=== PATIENT | male | born 1980 | race American Indian/Alaskan Native ===

== ENCOUNTER 2017-02-28 05:01 | Inpatient (IN) | payer BC ==
--- NOTE | 2017-02-28 05:24 | Emergency Department Report ---
ED Neuro Deficit HPI - General Stated Complaint: POSSIBLE CVA Time Seen by Provider: 02/28/17 05:15 - History of Present Illness Initial Comments: This is a 36-year-old gentleman who went to bed at 2200. He woke up at 03 40. He noted that his left leg wouldn't work. He states that he has had prior stroke greater than a year ago with subsequent deficit to his left leg but he is usually able to move his leg relatively good at least able to move it well enough to ambulate. He states that this morning he wasn't able to move his leg in the knee and in any fashion. He apprised his who called ambulance for transport to our facility. Patient denies any headache with this. He does report as well some mild weakness in the left arm. He states this is new is well. He denies any difficulty with speech whatsoever. Patient does report that he does have long-standing history of hypertension that he has run out of some of his medications for. Quality: weak Associated Symptoms: denies: chest pain, cough, diaphoresis, headaches, loss of appetite, shortness of breath - Related Data Allergies/Adverse Reactions: Allergies Allergy/AdvReac Type Severity Reaction Status Date / Time No Known Allergies Allergy Unverified 02/28/17 05:50 ED Review of Systems ROS: Stated complaint: POSSIBLE CVA Other details as noted in HPI Comment: All other systems reviewed and negative Constitutional: denies: chills, fever Eyes: denies: eye pain, eye discharge, vision change ENT: denies: ear pain, throat pain Respiratory: denies: cough, shortness of breath, wheezing Cardiovascular: denies: chest pain, palpitations Endocrine: no symptoms reported Gastrointestinal: denies: abdominal pain, nausea, diarrhea Genitourinary: denies: urgency, dysuria Musculoskeletal: denies: back pain, joint swelling, arthralgia Skin: denies: rash, lesions Neurological: weakness. denies: headache, paresthesias Psychiatric: denies: anxiety, depression Hematological/Lymphatic: denies: easy bleeding, easy bruising ED Neuro Physical Exam - General General appearance: alert, in no apparent distress Suspected Stroke: Yes - Head Head exam: Present: atraumatic, normocephalic - Eye Eye exam: Present: normal appearance, PERRL, EOMI. Absent: scleral icterus - ENT ENT exam: Present: normal exam, normal orophraynx, mucous membranes moist - Neck Neck exam: Present: normal inspection, other (no carotid bruit). Absent: tenderness, meningismus, full ROM - Respiratory Respiratory exam: Present: normal lung sounds bilaterally. Absent: respiratory distress, rales, rhonchi - Cardiovascular Cardiovascular Exam: Present: regular rate, normal rhythm. Absent: systolic murmur, diastolic murmur, rubs, gallop - GI/Abdominal GI/Abdominal exam: Present: soft, normal bowel sounds. Absent: tenderness, guarding - Rectal Rectal exam: Present: deferred - Extremities Exam Extremities exam: Present: other (left upper extremity with mild weakness compared to that of right. He is able to hold his arm up completely for the whole 5 seconds however. Left lower extremity with no activity against gravity. Right lower extremity is normal. Sluggish response on the left Babinski. Normal response on the right.). Absent: pedal edema, calf tenderness - Back Exam Back exam: Present: normal inspection. Absent: tenderness, CVA tenderness (R), CVA tenderness (L) - Neurological Exam Neurological exam: Present: alert, oriented X3, CN II-XII intact - NIHSS Assessment Interval: Baseline 1a. Level of Consciousness: alert 1b. LOC Questions: answers correctly 1c. LOC Commands: performs tasks correctly 2. Best Gaze: normal 3. Visual: no visual loss 4. Facial Palsy: normal symmetrical movement 5b. Motor Arm Right: no drift 5a. Motor Arm Left: no drift 6a. Motor Leg Left: no movement 6b. Motor Leg Right: no drift 7. Limb Ataxia: present 1 limb 8. Sensory: mild/moderate sensory loss 9. Best Language: no aphasia 10. Dysarthria: normal 11. Extinction/Inattention: no abnormality Total Score: 6 Stroke Severity: Moderate Stroke - Psychiatric Psychiatric exam: Present: normal affect, normal mood - Skin Skin exam: Present: warm, dry, intact, normal color. Absent: rash ED Course Vital Signs 02/28/17 02/28/17 02/28/17 05:05 05:07 05:30 Temperature 99.9 F H Pulse Rate 80 76 78 Respiratory 18 22 10 L Rate Blood Pressure 178/109 164/107 O2 Sat by Pulse 100 98 97 Oximetry - Reevaluation(s) Reevaluation #1: 02/28/17 05:18 ECG at 0509 demonstrating sinus rhythm at 76 bpm with a normal FL and QRS. Normal axis is noted. Does demonstrate mild QT prolongation of 486 ms. She does have some T-wave abnormalities noted laterally. Nonspecific ST-T changes noted as well. No STEMI noted. Reevaluation #2: 02/28/17 05:31 Timing of stroke with sedation out of the window for TPA. He is not a TPA candidate. Blood pressure is noted to be modestly elevated here. He would still be in the window from a BP standpoint however again is not a TPA candidate. I have given him his oral lisinopril as this is a medication he's had before. He is otherwise quite calm and comfortable in the room. ECG demonstrates sinus rhythm. My suspicion is stroke at this time given the neuro findings. We will continue to look for alternative etiology though. Reevaluation #3: 02/28/17 06:43 Neuro examination is unchanged at this time. . CT exam demonstrates no acute pathology. No acute bleed. Labs are noted and are unremarkable in nature. I did speak with the hospitalist regarding admission. She is agreeable with this. Patient was given aspirin here. Swallow eval was done before this. - Lab Data Result diagrams: 02/28/17 05:25 02/28/17 05:25 Lab Results 02/28/17 02/28/17 02/28/17 Range/Units 05:25 05:25 05:25 WBC 10.4 (4.5-11.0) K/mm3 RBC 5.48 H (3.65-5.03) M/mm3 Hgb 15.4 H (11.8-15.2) gm/dl Hct 47.0 H (35.5-45.6) % MCV 86 (84-94) fl MCH 28 (28-32) pg MCHC 33 (32-34) % RDW 14.8 (13.2-15.2) % Plt Count 233 (140-440) K/mm3 Lymph % (Auto) 22.3 (13.4-35.0) % [place] % (Auto) 8.6 H (0.0-7.3) % Eos % (Auto) 1.2 (0.0-4.3) % Baso % (Auto) 0.7 (0.0-1.8) % Lymph # 2.3 (1.2-5.4) K/mm3 [place] # 0.9 H (0.0-0.8) K/mm3 Eos # 0.1 (0.0-0.4) K/mm3 Baso # 0.1 (0.0-0.1) K/mm3 Seg Neutrophils % 67.2 (40.0-70.0) % Seg Neutrophils # 6.9 (1.8-7.7) K/mm3 PT 12.5 (12.2-14.9) Sec. INR 0.94 (0.87-1.13) APTT 33.4 (24.2-36.6) Sec. Thrombin Time 17.9 (15.1-19.6) Sec. Sodium (137-145) mmol/L Potassium (3.6-5.0) mmol/L Chloride (98-107) mmol/L Carbon Dioxide (22-30) mmol/L Anion Gap mmol/L BUN (9-20) mg/dL Creatinine (0.8-1.5) mg/dL Estimated GFR ml/min BUN/Creatinine Ratio % Glucose (75-100) mg/dL Calcium (8.4-10.2) mg/dL Total Bilirubin (0.1-1.2) mg/dL AST (5-40) units/L ALT (7-56) units/L Alkaline Phosphatase (35-129) units/L Total Creatine Kinase 125 (55-170) units/L CK-MB (CK-2) 1.6 (0.0-4.0) ng/mL CK-MB (CK-2) Rel Index 1.2 (0-4) Troponin T < 0.010 (0.00-0.029) ng/mL Total Protein (6.3-8.2) g/dL Albumin (3.9-5) g/dL Albumin/Globulin Ratio % 02/28/17 Range/Units 05:25 WBC (4.5-11.0) K/mm3 RBC (3.65-5.03) M/mm3 Hgb (11.8-15.2) gm/dl Hct (35.5-45.6) % MCV (84-94) fl MCH (28-32) pg MCHC (32-34) % RDW (13.2-15.2) % Plt Count (140-440) K/mm3 Lymph % (Auto) (13.4-35.0) % [place] % (Auto) (0.0-7.3) % Eos % (Auto) (0.0-4.3) % Baso % (Auto) (0.0-1.8) % Lymph # (1.2-5.4) K/mm3 [place] # (0.0-0.8) K/mm3 Eos # (0.0-0.4) K/mm3 Baso # (0.0-0.1) K/mm3 Seg Neutrophils % (40.0-70.0) % Seg Neutrophils # (1.8-7.7) K/mm3 PT (12.2-14.9) Sec. INR (0.87-1.13) APTT (24.2-36.6) Sec. Thrombin Time (15.1-19.6) Sec. Sodium 141 (137-145) mmol/L Potassium 3.8 (3.6-5.0) mmol/L Chloride 104.4 (98-107) mmol/L Carbon Dioxide 23 (22-30) mmol/L Anion Gap 17 mmol/L BUN 15 (9-20) mg/dL Creatinine 1.0 (0.8-1.5) mg/dL Estimated GFR > 60 ml/min BUN/Creatinine Ratio 15.00 % Glucose 134 H (75-100) mg/dL Calcium 8.6 (8.4-10.2) mg/dL Total Bilirubin 0.4 (0.1-1.2) mg/dL AST 12 (5-40) units/L ALT 13 (7-56) units/L Alkaline Phosphatase 91 (35-129) units/L Total Creatine Kinase (55-170) units/L CK-MB (CK-2) (0.0-4.0) ng/mL CK-MB (CK-2) Rel Index (0-4) Troponin T (0.00-0.029) ng/mL Total Protein 6.9 (6.3-8.2) g/dL Albumin 3.6 L (3.9-5) g/dL Albumin/Globulin Ratio 1.1 % Critical care attestation.: If time is entered above; I have spent that time in minutes in the direct care of this critically ill patient, excluding procedure time. ED Disposition Clinical Impression: Stroke Qualifiers: CVA mechanism: embolism Precerebral and cerebral artery: unspecified cerebral artery Qualified Code(s): I63.40 - Cerebral infarction due to embolism of unspecified cerebral artery Disposition: OP ADMITTED IP TO THIS HOSP Is pt being admited?: Yes Does the pt Need Aspirin: No Condition: Stable Time of Disposition: 06:41
[2017-02-28] MEDS ORDERED: ZESTRIL PO ONE (05:25)
[2017-02-28 05:40] LABS: Basophils % (Auto) 0.7 % (0.0-1.8); Eosinophils % (Auto) 1.2 % (0.0-4.3); Hemoglobin 15.4 gm/dl (11.8-15.2); Mean Corpuscular HGB Conc 33 % (32-34); Mean Corpuscular Hemoglobin 28 pg (28-32); Mean Corpuscular Volume 86 fl (84-94); Platelet Count 233 K/mm3 (140-440); Red Blood Count 5.48 M/mm3 (3.65-5.03); Red Cell Distribution Width 14.8 % (13.2-15.2); White Blood Count 10.4 K/mm3 (4.5-11.0)
[2017-02-28 05:49] LABS: INR 0.94 (0.87-1.13)
[2017-02-28 05:50] LABS: Partial Thromboplastin Time 33.4 Sec. (24.2-36.6)
[2017-02-28 05:57] LABS: Alanine Aminotransferase 13 units/L (7-56); Albumin 3.6 g/dL (3.9-5); Albumin/Globulin Ratio 1.1 %; Alkaline Phosphatase 91 units/L (35-129); Anion Gap 17 mmol/L; Bilirubin,Total 0.4 mg/dL (0.1-1.2); Blood Urea Nitrogen 15 mg/dL (9-20); Calcium 8.6 mg/dL (8.4-10.2); Carbon Dioxide 23 mmol/L (22-30); Chloride 104.4 mmol/L (98-107); Glucose 134 mg/dL (75-100); Potassium 3.8 mmol/L (3.6-5.0); Sodium 141 mmol/L (137-145); Total Protein 6.9 g/dL (6.3-8.2)
[2017-02-28 06:04] LABS: Creatine Kinase MB 1.6 ng/mL (0.0-4.0)
[2017-02-28 06:08] LABS: Creatine Kinase 125 units/L (55-170)
--- NOTE | 2017-02-28 06:20 | Cat Scan Report ---
FINAL REPORT PROCEDURE: CT HEAD/BRAIN WO CON TECHNIQUE: Computerized tomography of the head was performed without contrast material. HISTORY: LEFT SIDED WEAKNESS HX CVA'S suspected stroke COMPARISON: No prior studies are available for comparison. FINDINGS: Skull and scalp: Normal. Paranasal sinuses: Normal. Ventricles and subarachnoid spaces: There is mild central and cortical atrophy. There is no hydrocephalus or asymmetry.. Cerebrum: No evidence of hemorrhage, acute infarction or mass. There are old lacunar infarct defects in the left thalamus, right caudate nucleus and left basal ganglia. There is periventricular deep white matter ischemic gliosis which is somewhat advanced for the patient's age. Cerebellum and brainstem: No evidence of hemorrhage, acute infarction or mass. There is an old lacunar infarct defect in the right side of the lennie. There is a old lacunar infarct in the right hemisphere of the cerebellum. Vasculature: Normal. Comments: None. IMPRESSION: There are chronic ischemic changes and multiple old lacunar infarcts as described. There is no specific evidence of acute infarction. There is no hemorrhage, edema, mass, mass effect or midline shift.
[2017-02-28] MEDS ORDERED: ASPIRIN PO ONE (06:39)
--- NOTE | 2017-02-28 07:19 | Admit Criteria Form ---
Admission Criteria Documentation: STROKE: ISCHEMIC Clinical Indications for Admission to Inpatient Care (Place 'X' for any and all applicable criteria): Admission is indicated for ANY ONE of the following(1)(2)(3)(4): [X ]I. Acute stroke Extended stay beyond goal length of stay may be needed for(1)(2) [ ]a) Major deficit or clinical deterioration [ ]b) Hospital-acquired infection (eg, urinary tract infection, pneumonia) [ ]c) Embolic cause of stroke [ ]d) Venous thromboembolism(9) [ ]e) Seizures [ ]f) Bleeding (eg, cerebral) [ ]g) Increased intracranial pressure [ ]h) Comorbidities [ ]i) Surgical intervention The original [facility] content created by [employer] has been revised. The portions of the content which have been revised are identified through the use of italic text or in bold, and [facility] has neither reviewed nor approved the modified material. All other unmodified content is copyright [facility]. Please see references footnoted in the original [facility] edition 2016 Admission Criteria Met: Yes
--- NOTE | 2017-02-28 07:29 | History and Physical Report ---
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 Patient presented to the emergency room , CT head without contrast no acute intracranial abnormality noted, not a candidate for TPA Patient has history of hypertension noncompliant with medications Noted to have malignant hypertension with mild improvement on oral anti- hypertensives At the time of my evaluation patient reports that his left-sided weakness slightly improved however still has severe weakness of the left lower extremity Denies any chest pain or shortness of breath Denies headache dizziness Denies nausea vomiting or abdominal pain No history of seizure or loss of consciousness As mentioned above patient had TIA in 2011 and CVA with residual left-sided weakness in 2013, was extensively evaluated both times in [place] at a local hospital, and patient and his report that the workup was negative in the past Past History Past Medical History: hypertension, stroke (with residual left-sided weakness) Past Surgical History: hernia repair Social history: lives with family, smoking (ongoing tobacco use 10 cigarettes per day for many years), alcohol abuse (occasional alcohol use), full code, other (employed). denies: prescription drug abuse, IV drug use Family history: hypertension Medications and Allergies Allergies Allergy/AdvReac Type Severity Reaction Status Date / Time No Known Allergies Allergy Unverified 02/28/17 05:50 Home Medications Medication Instructions Recorded Confirmed Last Taken Type Aspirin EC 81 mg PO DAILY 02/28/17 02/28/17 Unknown History AtorvaSTATin [Lipitor] 40 mg PO DAILY 02/28/17 02/28/17 Unknown History Carvedilol [Coreg] 25 mg PO BID 02/28/17 02/28/17 Unknown History Hydrochlorothiazide [HCTZ] 25 mg PO DAILY 02/28/17 02/28/17 Unknown History Lisinopril [Zestril] 40 mg PO DAILY 02/28/17 02/28/17 Unknown History NIFEdipine [Nifedipine ER] 60 mg PO DAILY 02/28/17 02/28/17 Unknown History Active Meds: Active Medications Enoxaparin Sodium (Lovenox) 40 mg SUB-Q QDAY GREGORY Review of Systems Constitutional: weakness, no weight loss, no weight gain, no fever, no chills Ears, nose, mouth and throat: no nasal congestion, no nasal discharge Cardiovascular: no chest pain, no orthopnea, no palpitations Respiratory: no cough with sputum, no shortness of breath Gastrointestinal: no abdominal pain, no nausea, no vomiting Genitourinary Male: no dysuria, no hematuria Musculoskeletal: no myalgias, no arthritis Integumentary: no rash, no lesions Neurological: weakness, no seizures, no syncope Psychiatric: no anxiety, no depression Endocrine: no cold intolerance, no heat intolerance, no polydipsia, no polyuria Hematologic/Lymphatic: no easy bruising, no easy bleeding Allergic/Immunologic: no urticaria, no allergic rhinitis Exam - Constitutional Vitals: Temp Pulse Resp BP Pulse Ox 99.9 F H 83 8 L 163/113 99 02/28/17 05:05 02/28/17 07:00 02/28/17 07:00 02/28/17 07:00 02/28/17 07:00 General appearance: Present: no acute distress, well-nourished, obese - EENT Eyes: Present: PERRL, EOM intact - Neck Neck: Present: supple, normal ROM - Respiratory Respiratory effort: normal Respiratory: bilateral: diminished, negative: rales, rhonchi, wheezing - Cardiovascular Rhythm: regular Heart Sounds: Present: S1 & S2 - Extremities Extremities: no ischemia, pulses intact, pulses symmetrical, No edema Peripheral Pulses: within normal limits - Abdominal General gastrointestinal: Present: soft, non-tender, non-distended, normal bowel sounds - Integumentary Integumentary: Absent: jaundice, rash - Musculoskeletal Musculoskeletal: left sided weakness - Psychiatric Psychiatric: appropriate mood/affect, cooperative - Neurologic Neurologic: CNII-XII intact, focal deficits (eft sided weakness, sensory grossly intact), other (alert awake oriented 3) Results - Labs CBC & Chem 7: 02/28/17 05:25 02/28/17 05:25 Labs: Abnormal lab results 02/28/17 02/28/17 Range/Units 05:25 05:25 RBC 5.48 H (3.65-5.03) M/mm3 Hgb 15.4 H (11.8-15.2) gm/dl Hct 47.0 H (35.5-45.6) % [place] % (Auto) 8.6 H (0.0-7.3) % [place] # 0.9 H (0.0-0.8) K/mm3 Glucose 134 H (75-100) mg/dL Albumin 3.6 L (3.9-5) g/dL Assessment and Plan --Acute CVA with left-sided weakness Not a candidate for TPA, aspirin and statin Swallowing evaluation, cardiac diet as tolerated if cleared by swallow Stroke protocol, permissive hypertension per protocol Neuro workup with carotid Doppler, echocardiogram, MRI brain without contrast Physical therapy occupational therapy and speech therapy, acute rehabilitation screen Stroke education Neurology consultation --History of recurrent CVA Patient had TIA in 2011 and CVA with left-sided weakness in 2013 Patient reports Workup was Negative [facility] We will get medical records if needed In view of recurrent CVA and young age, rule out paroxysmal A. fib hypercoagulable workup as well as possible JUAN JOSE --Malignant hypertension Secondary to noncompliance, resume home antihypertensive medications As well as when necessary hydralazine, permissive hypertension per stroke protocol --Ongoing tobacco use Smoking cessation counseling done, patient strongly advised to quit tobacco use Risks and consequences and complications of ongoing tobacco use discussed with the patient Answered his questions, advice nicotine patch, I spent total 10 minutes counseling smoking cessation --Medical noncompliance as Patient strongly advised to comply with his medications and diet Verbalized understanding --DVT prophylaxis With Lovenox Closely monitor the patient and adjust the management as needed Patient's condition treatment plan discussed in detail with the patient and his at the bedside Answered all their questions I also discussed the case and treatment plan. The ER physician and his nurse
[2017-02-28] MEDS ORDERED: APRESOLINE IV ONE (08:02)
[2017-02-28] MEDS ORDERED: APRESOLINE ONE (08:03)
[2017-02-28] MEDS ORDERED: ASPIRIN PO SCH (10:00)
[2017-02-28] MEDS ORDERED: LOPRESSOR PO SCH (10:00)
[2017-02-28] MEDS ORDERED: PROCARDIA XL PO SCH (10:00)
[2017-02-28] MEDS: LOVENOX SUB-Q SCH (11:15)
[2017-02-28] MEDS: PEPCID PO SCH ×2 (11:15→21:36)
[2017-02-28] MEDS ORDERED: NORMODYNE IV PRN (11:31)
[2017-02-28 12:08] LABS: Urine Drugs of Abuse Note Disclamer
--- NOTE | 2017-02-28 12:14 | Magnetic Resonance Report ---
MRI OF THE BRAIN WITHOUT CONTRAST: HISTORY: CVA PROCEDURE: Multiplanar, multisequence MR imaging of the brain without IV contrast was performed. FINDINGS: There are multiple small and large areas of diffusion restriction in the medial right frontal and parietal lobes within the right anterior cerebral artery territory. The largest area measures up to 5.5 x 2.3 cm on diffusion image 28. There is mild edema in these areas on the T2 weighted images but no evidence for hemorrhage or mass. No mass effect. Mild volume loss and moderate nonspecific chronic white matter changes are identified. Chronic lacunar infarcts are noted in the bilateral basal ganglia and right lennie. 2 or 3 chronic focal infarcts measuring less than 1 cm are identified in the cerebellar hemispheres. No large chronic infarct. The midline structures are central. The basal cisterns are patent. Normal ventricular size. The orbital cavities and sella turcica demonstrate no abnormality. The visualized paranasal sinuses and mastoid air cells are well aerated. IMPRESSION: Small and large areas of acute to subacute ischemia in the right anterior cerebral artery territory. No evidence for hemorrhage. Chronic focal infarcts as described. Chronic white matter changes.
[2017-02-28] MEDS ORDERED: PROCARDIA XL PO ONE (14:54)
[2017-02-28] MEDS ORDERED: COREG PO ONE (14:55)
[2017-02-28] MEDS: TYLENOL PO PRN (20:33)
[2017-02-28] MEDS: COREG PO SCH (21:36)
[2017-03-01] MEDS: PEPCID PO SCH ×2 (09:50→21:11)
[2017-03-01] MEDS: PLAVIX PO SCH (09:50)
[2017-03-01] MEDS: HABITROL TD SCH (09:50)
[2017-03-01] MEDS: ZESTRIL PO SCH (09:50)
[2017-03-01] MEDS: COREG PO SCH ×2 (09:51→21:11)
[2017-03-01] MEDS: PROCARDIA XL PO SCH (09:51)
[2017-03-01] MEDS: LOVENOX SUB-Q SCH (09:52)
[2017-03-01] MEDS: HCTZ PO SCH (09:53)
[2017-03-01] MEDS: APRESOLINE IV PRN ×2 (12:18→21:10)
--- NOTE | 2017-03-01 12:50 | Consultation ---
History of Present Illness Consult date: 03/01/17 Requesting physician: LY SWANSON Reason for Consult: stroke Chief complaint: L side weak History of present illness: 36 YO M Hx TIA in 2011, acute CVA with residual left-sided weakness in 2013, HTN poorly compliant, and tobacco abuse p/w waking up 4/6 w/ worsened baseline left-sided weakness around 3:40 morning. Sx are constant.There are no clear aggravating, relieving or temporal factors. Severity was enough to cause inability to effectively use the left side. Past History Past Medical History: hypertension, stroke (with residual left-sided weakness) Past Surgical History: hernia repair Social history: lives with family, smoking (ongoing tobacco use 10 cigarettes per day for many years), alcohol abuse (occasional alcohol use), full code, other (employed). denies: prescription drug abuse, IV drug use Family history: hypertension Medications and Allergies Allergies Allergy/AdvReac Type Severity Reaction Status Date / Time No Known Allergies Allergy Unverified 02/28/17 05:50 Home Medications Medication Instructions Recorded Confirmed Last Taken Type Aspirin EC 81 mg PO DAILY 02/28/17 02/28/17 Unknown History AtorvaSTATin [Lipitor] 40 mg PO DAILY 02/28/17 02/28/17 Unknown History Carvedilol [Coreg] 25 mg PO BID 02/28/17 02/28/17 Unknown History Hydrochlorothiazide [HCTZ] 25 mg PO DAILY 02/28/17 02/28/17 Unknown History Lisinopril [Zestril] 40 mg PO DAILY 02/28/17 02/28/17 Unknown History NIFEdipine [Nifedipine ER] 60 mg PO DAILY 02/28/17 02/28/17 Unknown History Active Meds: Active Medications Acetaminophen (Tylenol) 650 mg PO Q4H PRN PRN Reason: Pain, Mild (1-3) Last Admin: 02/28/17 20:33 Dose: 650 mg Atorvastatin Calcium (Lipitor) 40 mg PO QHS [facility] Last Admin: 02/28/17 21:36 Dose: 40 mg Carvedilol (Coreg) 25 mg PO BID [facility] Last Admin: 03/01/17 09:51 Dose: 25 mg Clopidogrel Bisulfate (Plavix) 75 mg PO QDAY [facility] Last Admin: 03/01/17 09:50 Dose: 75 mg Enoxaparin Sodium (Lovenox) 40 mg SUB-Q QDAY [facility] Last Admin: 03/01/17 09:52 Dose: 40 mg Famotidine (Pepcid) 20 mg PO BID [facility] Last Admin: 03/01/17 09:50 Dose: 20 mg Hydralazine HCl (Apresoline) 10 mg IV Q4HR PRN PRN Reason: Hypertension Last Admin: 03/01/17 12:18 Dose: 10 mg Hydrochlorothiazide (Hctz) 25 mg PO DAILY [facility] Last Admin: 03/01/17 09:53 Dose: 25 mg Labetalol HCl (Normodyne) 10 mg IV Q6H PRN PRN Reason: Hypertension Lisinopril (Zestril) 40 mg PO DAILY [facility] Last Admin: 03/01/17 09:50 Dose: 40 mg Nicotine (Habitrol) 14 mg TD QDAY [facility] Last Admin: 03/01/17 09:50 Dose: 14 mg Nifedipine (Procardia Xl) 60 mg PO DAILY [facility] Last Admin: 03/01/17 09:51 Dose: 60 mg Review of Systems Neurological: paralysis, weakness, motor disturbance, paralysis, no numbness, no sensory deficit, no double vision, no loss of vision Physical Examination - Vital Signs Vital Signs: Vital Signs Temp Pulse Resp BP Pulse Ox 99.9 F H 80 18 178/109 100 02/28/17 05:05 02/28/17 05:05 02/28/17 05:05 02/28/17 05:05 02/28/17 05:05 - Constitutional General appearance: comfortable - EENT EENT: Present: ATNC, PERRL, mucous membranes moist, hearing intact, vision intact - Respiratory Respiratory: Present: chest non-tender, normal breath sounds, no respiratory distress - Cardiovascular Cardiovascular: Present: regular rate Extremities: Present: no peripheral edema bilatateraly, no clubbing, cyanosis, no inflammation, no ischemia or petechiae - Gastrointestinal Gastrointestinal: Present: normoactive bowel sounds, soft, non-distended - Integumentary Integumentary: Present: normal - Neurologic Cranial nerve examination: PERRL, EOMI, VFF, intact, intact shoulder shrug, intact cough reflex, Intact Vestibulo-ocular r, intact corneal reflex, facial droop (on L mod), normal palatal elevation Speech examination: other (dysarthria, paucity of speech) Sensorimotor examination: flaccid paralysis (on LLE), hemiparesis (on L) Motor examination - right side: 55: biceps, triceps, wrist flexion, wrist extension, decay control operator, hip flexors, knee extensors, dorsiflexion, toe extension (EHL) , plantarflexion Motor examination - left side: 5: biceps, triceps, wrist flexion, wrist extension, decay control operator, hip flexors, knee extensors, dorsiflexion, toe extension (EHL) , plantarflexion Detailed sensory examination: intact, light touch, temperature Reflex and gait examination: Babinski's sign (on L) Reflexes: 3+: ankle (on L), bicep, knee, tricep - Musculoskeletal Musculoskeletal: Present: no fluid collection, no pain, normal range of motion - Psychiatric Psychiatric: Present: depressed, other (not cooperative) Results - Laboratory Findings CBC and BMP: 02/28/17 05:25 02/28/17 05:25 Abnormal Lab Findings: Abnormal Labs 02/28/17 11:21 HDL Cholesterol 38 L Assessment and Plan 36 YO M Hx TIA in 2011, acute CVA with residual left-sided weakness in 2013 but reportedly negative w/o @ [facility], HTN poorly compliant, and tobacco abuse on ASA 81mg QDay ? compliance p/w wake up 4/6 w/ worsened baseline left- sided hemiparesis. MRI Brain confirms acute LEONORA infarct. 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 CDs neg. LDL 131. TTE neg beyond LVH no thrombus. Plan and Recommendation: 1. No indication for pharmacologic thrombolysis with IV tPA or mechanical thrombectomy due to last known normal > 6 hrs from presentation. Current NIHSS 11. 2. Telemetry bed w/ Q4 hour neuro checks 3. Vascular Imaging: CTA Head/Neck w/ Contrast 4. Agree with JUAN JOSE w/ bubble to r/o proximal source but unlikely 5. 30 day ambulatory Tele monitor ? pAFib 6. Stroke in [place] Eval: ESR/CRP, Coags, RPR/VDRL, Hypercoag screen-Protein C Activity, Protein S Ag, Antithrombin III, Activated Protein C resistance, Factor V Leiden, RVVT or APLAbs, Beta-2 GP Ab, Fibrinogen, Prothrombin gene 09174I mutation, MTHFR C677T, ELEANOR-1, HIV, ARTIE, Lactic Acid, Homocysteine, Cryoglobulin, Complement level, ANCA, Scl-70 Ab, anti-centromere Ab, Anti-Ro ( SSA)/Anti-La (SSB), CHAPARRITA, Antiproteinase 3, Lipoprotein A 7. Permissive HTN for first 24-48 hours: HOB < 30 degrees, isotonic IVF prn and refrain from active Tx of HTN unless BP > 185/105 or pt develops malignant HTN. Can lower MAPs by 10-15% daily to reach goal SBP 120-160 after permissive HTN period. 8. Secondary stroke prevention: ASA 325mg Daily x 1 then 81mg QDay, add Plavix 75mg Qday & upgrade to full dose statin therapy (Crestor 20mg or 40mg OR Lipitor 40mg or 80mg Daily OR Zocor 40mg QDay) for goal LDL < 70. No firm indication at this point for therapeutic anticoagulation as pt has not had AFib captured on telemetry monitoring. 9. F/E/N: isotonic IVF prn, prn replete, bedside speech/swallow eval prior to PO intake. 10. DVT Prophylaxis 11. Stroke education, PT/OT/Speech Therapy consults, CM evaluation 12. For any changes in neurologic status, pls obtain STAT CTH w/o contrast and call neurology
--- NOTE | 2017-03-01 16:44 | Progress Note ---
Assessment and Plan Assessment and plan: -Acute CVA with left-sided weakness Not a candidate for TPA, aspirin , Plavix and statin cardiac diet as tolerated , cleared by swallow,Stroke education Physical therapy occupational therapy and speech therapy, acute rehabilitation screen Neurology consultation noted and appreciated --History of recurrent CVA Patient had TIA in 2011 and CVA with left-sided weakness in 2013 rule out paroxysmal A. fib, and his cardiac monitoring during the hospital stay , and Holter Monitoring of discharge, hypercoagulable workup as well as possible JUAN JOSE --Malignant hypertension Secondary to noncompliance, resume home antihypertensive medications As well as when necessary hydralazine, permissive hypertension per stroke protocol --Ongoing tobacco use Smoking cessation counseling done, patient strongly advised to quit tobacco use Risks and consequences and complications of ongoing tobacco use discussed with the patient Answered his questions, advice nicotine patch, I spent total 10 minutes counseling smoking cessation --Medical noncompliance as Patient strongly advised to comply with his medications and diet Verbalized understanding --DVT prophylaxis With Lovenox Physical therapy occupational therapy rehabilitation Plan of care discussed with the patient as well as his nurse History Interval history: Patient seen and evaluated medical records reviewed No new events reported by the nursing staff Patient feels better, no improvement of the left-sided weakness Neuro workup is in progress Hospitalist Physical - Constitutional Vitals: Temp Pulse Resp BP Pulse Ox 98.0 F 82 16 140/102 96 03/01/17 12:43 03/01/17 12:43 03/01/17 12:43 03/01/17 12:43 03/01/17 00:00 General appearance: Present: no acute distress, well-nourished, obese - EENT Eyes: Present: PERRL, EOM intact - Neck Neck: Present: supple, normal ROM - Respiratory Respiratory effort: normal Respiratory: negative: rales, rhonchi, wheezing - Cardiovascular Rhythm: regular Heart Sounds: Present: S1 & S2 - Extremities Extremities: no ischemia, pulses intact, pulses symmetrical Peripheral Pulses: within normal limits - Abdominal General gastrointestinal: soft, non-tender, non-distended, normal bowel sounds - Integumentary Integumentary: Present: clear, warm - Psychiatric Psychiatric: appropriate mood/affect, cooperative - Neurologic Neurologic: other (CVA with left-sided weakness) Results - Labs CBC & Chem 7: 02/28/17 05:25 02/28/17 05:25 Labs: Laboratory Last Values WBC 10.4 K/mm3 (4.5-11.0) 02/28/17 05:25 RBC 5.48 M/mm3 (3.65-5.03) H 02/28/17 05:25 Hgb 15.4 gm/dl (11.8-15.2) H 02/28/17 05:25 Hct 47.0 % (35.5-45.6) H 02/28/17 05:25 MCV 86 fl (84-94) 02/28/17 05:25 MCH 28 pg (28-32) 02/28/17 05:25 MCHC 33 % (32-34) 02/28/17 05:25 RDW 14.8 % (13.2-15.2) 02/28/17 05:25 Plt Count 233 K/mm3 (140-440) 02/28/17 05:25 Lymph % (Auto) 22.3 % (13.4-35.0) 02/28/17 05:25 [place] % (Auto) 8.6 % (0.0-7.3) H 02/28/17 05:25 Eos % (Auto) 1.2 % (0.0-4.3) 02/28/17 05:25 Baso % (Auto) 0.7 % (0.0-1.8) 02/28/17 05:25 Lymph # 2.3 K/mm3 (1.2-5.4) 02/28/17 05:25 [place] # 0.9 K/mm3 (0.0-0.8) H 02/28/17 05:25 Eos # 0.1 K/mm3 (0.0-0.4) 02/28/17 05:25 Baso # 0.1 K/mm3 (0.0-0.1) 02/28/17 05:25 Seg Neutrophils % 67.2 % (40.0-70.0) 02/28/17 05:25 Seg Neutrophils # 6.9 K/mm3 (1.8-7.7) 02/28/17 05:25 ESR 1 mm/Hr (0-20) 02/28/17 05:25 PT 12.5 Sec. (12.2-14.9) 02/28/17 05:25 INR 0.94 (0.87-1.13) 02/28/17 05:25 APTT 33.4 Sec. (24.2-36.6) 02/28/17 05:25 Thrombin Time 17.9 Sec. (15.1-19.6) 02/28/17 05:25 Sodium 141 mmol/L (137-145) 02/28/17 05:25 Potassium 3.8 mmol/L (3.6-5.0) 02/28/17 05:25 Chloride 104.4 mmol/L (98-107) 02/28/17 05:25 Carbon Dioxide 23 mmol/L (22-30) 02/28/17 05:25 Anion Gap 17 mmol/L 02/28/17 05:25 BUN 15 mg/dL (9-20) 02/28/17 05:25 Creatinine 1.0 mg/dL (0.8-1.5) 02/28/17 05:25 Estimated GFR > 60 ml/min 02/28/17 05:25 BUN/Creatinine Ratio 15.00 % 02/28/17 05:25 Glucose 134 mg/dL (75-100) H 02/28/17 05:25 Hemoglobin A1c 5.9 % (4-6) 02/28/17 05:25 Calcium 8.6 mg/dL (8.4-10.2) 02/28/17 05:25 Total Bilirubin 0.4 mg/dL (0.1-1.2) 02/28/17 05:25 AST 12 units/L (5-40) 02/28/17 05:25 ALT 13 units/L (7-56) 02/28/17 05:25 Alkaline Phosphatase 91 units/L (35-129) 02/28/17 05:25 Total Creatine Kinase 125 units/L (55-170) 02/28/17 05:25 CK-MB (CK-2) 1.6 ng/mL (0.0-4.0) 02/28/17 05:25 CK-MB (CK-2) Rel Index 1.2 (0-4) 02/28/17 05:25 Troponin T < 0.010 ng/mL (0.00-0.029) 02/28/17 05:25 Total Protein 6.9 g/dL (6.3-8.2) 02/28/17 05:25 Albumin 3.6 g/dL (3.9-5) L 02/28/17 05:25 Albumin/Globulin Ratio 1.1 % 02/28/17 05:25 Triglycerides 95 mg/dL (2-149) 02/28/17 11:21 Cholesterol 178 mg/dL (50-199) 02/28/17 11:21 LDL Cholesterol Direct 121 mg/dL (50-130) 02/28/17 11:21 HDL Cholesterol 38 mg/dL (40-59) L 02/28/17 11:21 Cholesterol/HDL Ratio 4.68 % 02/28/17 11:21 Urine Opiates Screen Presumptive negative 02/28/17 11:08 Urine Methadone Screen Presumptive negative 02/28/17 11:08 Ur Barbiturates Screen Presumptive negative 02/28/17 11:08 Ur Phencyclidine Scrn Presumptive negative 02/28/17 11:08 Ur Amphetamines Screen Presumptive negative 02/28/17 11:08 U Benzodiazepines Scrn Presumptive negative 02/28/17 11:08 Urine Cocaine Screen Presumptive negative 02/28/17 11:08 U Marijuana (THC) Screen Presumptive negative 02/28/17 11:08 Drugs of Abuse Note Disclamer 02/28/17 11:08
[2017-03-02] MEDS ORDERED: NACL ONE (01:54)
--- NOTE | 2017-03-02 03:41 | Cat Scan Report ---
FINAL REPORT PROCEDURE: CT ANGIOGRAPHY HEAD TECHNIQUE: Computerized tomographic angiography of the head and neck was performed after the IV injection of iodinated nonionic contrast including image processing. The image data was postprocessed using 2-dimensional multiplanar reformatted (MPR) and 3-dimensional (MIP and/or volume rendered) techniques. HISTORY: [facility] [place] [facility] COMPARISON: CT of the head dated 02/28/2017 FINDINGS: CT of the head: There is no intracranial hemorrhage or edema, mass, mass effect or midline shift. There is an 8 millimeter lacunar defect in the right paramedian lennie suggesting old lacunar infarct defect. There are chronic deep white matter ischemic changes. There are old lacunar infarct defects in the left thalamus and the periventricular white matter bilaterally. Bony calvarium is intact. The paranasal sinuses are clear. CT angiogram of the neck: The common carotid arteries are patent and normal in caliber. The carotid bulbs are patent and normal in caliber. Internal carotid arteries are patent and normal in caliber. There is no stenosis, dissection or thrombosis. The vertebral arteries are patent and normal in caliber. Nonvascular cervical structures including cervical spine are unremarkable. CT angiogram of the head: The basilar artery demonstrates focal narrowing of the midportion with less than 50 percent narrowing suggesting focal intracranial atherosclerosis. There is no dissection or occlusion. The posterior cerebral arteries are patent and normal in caliber. Intracranial internal carotid arteries are patent and normal in caliber. The anterior and middle cerebral artery branches are patent and normal in caliber. There is no internal carotid artery stenosis, thrombosis, dissection or aneurysm. The dural sinuses are patent. There is no thrombosis. There is no vascular malformation. IMPRESSION: CT angiogram of the neck: There is no stenosis, dissection or thrombosis. CT angiogram of the head: The basilar artery demonstrates focal narrowing of the midportion with less than 50 percent narrowing suggesting focal intracranial atherosclerosis. There is no dissection or occlusion. Intracranial anterior circulation is unremarkable.
[2017-03-02] MEDS: APRESOLINE IV PRN (05:00)
[2017-03-02] MEDS: HCTZ PO SCH (09:45)
[2017-03-02] MEDS: PROCARDIA XL PO SCH (09:45)
[2017-03-02] MEDS: COREG PO SCH ×2 (09:45→21:29)
[2017-03-02] MEDS: PLAVIX PO SCH (09:46)
[2017-03-02] MEDS: BABY ASPIRIN PO SCH (09:46)
[2017-03-02] MEDS: ZESTRIL PO SCH (09:46)
[2017-03-02] MEDS: LOVENOX SUB-Q SCH (09:46)
[2017-03-02] MEDS: HABITROL TD SCH (09:46)
[2017-03-02] MEDS: PEPCID PO SCH ×2 (09:46→21:29)
--- NOTE | 2017-03-02 17:20 | Progress Note ---
Assessment and Plan Assessment and plan: --Acute CVA with left-sided hemiparesis Not a candidate for TPA, aspirin , Plavix and statin Physical therapy occupational therapy and speech therapy, acute rehabilitation screen Neurology following --History of recurrent CVA Patient had TIA in 2011 and CVA with left-sided weakness in 2013 Holter monitoring to rule out paroxysmal A. fib hypercoagulable workup hematology consultation for assistance with management JUAN JOSE, rule out cardioembolic source --Malignant hypertension, well controlled Secondary to noncompliance, resume home antihypertensive medications As well as when necessary hydralazine, --Ongoing tobacco use Smoking cessation counseling done, patient strongly advised to quit tobacco use --Medical noncompliance as Patient strongly advised to comply with his medications and diet --DVT prophylaxis, With Lovenox Physical therapy occupational therapy rehabilitation inpatient versus subacute when medically stable Plan of care discussed with the patient as well as his nurse We'll add low-dose Xanax for his anxiety Patient's condition treatment plan discussed in detail with the his , she had multiple questions answered all of them Patient and his verbalized understanding History Interval history: Patient seen and evaluated medical records reviewed Patient is anxious and upset about his recent stroke Denies any chest pain shortness of breath Alert and awake responding appropriately not in acute distress Hospitalist Physical - Constitutional Vitals: Temp Pulse Resp BP Pulse Ox 99.1 F 103 H 20 137/95 95 03/02/17 16:02 03/02/17 16:02 03/02/17 16:02 03/02/17 16:02 03/02/17 16:02 General appearance: Present: no acute distress, well-nourished - EENT Eyes: Present: PERRL, EOM intact - Neck Neck: Present: supple, normal ROM - Respiratory Respiratory effort: normal Respiratory: bilateral: diminished, negative: rales, rhonchi, wheezing - Cardiovascular Rhythm: regular Heart Sounds: Present: S1 & S2 - Extremities Extremities: no ischemia, pulses intact, pulses symmetrical Peripheral Pulses: within normal limits - Abdominal General gastrointestinal: soft, non-tender, non-distended, normal bowel sounds - Integumentary Integumentary: Present: clear, warm - Psychiatric Psychiatric: appropriate mood/affect, cooperative - Neurologic Neurologic: other (CVA with left hemiparesis) Results - Labs CBC & Chem 7: 02/28/17 05:25 02/28/17 05:25 Labs: Laboratory Last Values WBC 10.4 K/mm3 (4.5-11.0) 02/28/17 05:25 RBC 5.48 M/mm3 (3.65-5.03) H 02/28/17 05:25 Hgb 15.4 gm/dl (11.8-15.2) H 02/28/17 05:25 Hct 47.0 % (35.5-45.6) H 02/28/17 05:25 MCV 86 fl (84-94) 02/28/17 05:25 MCH 28 pg (28-32) 02/28/17 05:25 MCHC 33 % (32-34) 02/28/17 05:25 RDW 14.8 % (13.2-15.2) 02/28/17 05:25 Plt Count 233 K/mm3 (140-440) 02/28/17 05:25 Lymph % (Auto) 22.3 % (13.4-35.0) 02/28/17 05:25 [place] % (Auto) 8.6 % (0.0-7.3) H 02/28/17 05:25 Eos % (Auto) 1.2 % (0.0-4.3) 02/28/17 05:25 Baso % (Auto) 0.7 % (0.0-1.8) 02/28/17 05:25 Lymph # 2.3 K/mm3 (1.2-5.4) 02/28/17 05:25 [place] # 0.9 K/mm3 (0.0-0.8) H 02/28/17 05:25 Eos # 0.1 K/mm3 (0.0-0.4) 02/28/17 05:25 Baso # 0.1 K/mm3 (0.0-0.1) 02/28/17 05:25 Seg Neutrophils % 67.2 % (40.0-70.0) 02/28/17 05:25 Seg Neutrophils # 6.9 K/mm3 (1.8-7.7) 02/28/17 05:25 ESR 1 mm/Hr (0-20) 02/28/17 05:25 PT 12.5 Sec. (12.2-14.9) 02/28/17 05:25 INR 0.94 (0.87-1.13) 02/28/17 05:25 APTT 33.4 Sec. (24.2-36.6) 02/28/17 05:25 Thrombin Time 17.9 Sec. (15.1-19.6) 02/28/17 05:25 Sodium 141 mmol/L (137-145) 02/28/17 05:25 Potassium 3.8 mmol/L (3.6-5.0) 02/28/17 05:25 Chloride 104.4 mmol/L (98-107) 02/28/17 05:25 Carbon Dioxide 23 mmol/L (22-30) 02/28/17 05:25 Anion Gap 17 mmol/L 02/28/17 05:25 BUN 15 mg/dL (9-20) 02/28/17 05:25 Creatinine 1.0 mg/dL (0.8-1.5) 02/28/17 05:25 Estimated GFR > 60 ml/min 02/28/17 05:25 BUN/Creatinine Ratio 15.00 % 02/28/17 05:25 Glucose 134 mg/dL (75-100) H 02/28/17 05:25 Hemoglobin A1c 5.9 % (4-6) 02/28/17 05:25 Calcium 8.6 mg/dL (8.4-10.2) 02/28/17 05:25 Total Bilirubin 0.4 mg/dL (0.1-1.2) 02/28/17 05:25 AST 12 units/L (5-40) 02/28/17 05:25 ALT 13 units/L (7-56) 02/28/17 05:25 Alkaline Phosphatase 91 units/L (35-129) 02/28/17 05:25 Total Creatine Kinase 125 units/L (55-170) 02/28/17 05:25 CK-MB (CK-2) 1.6 ng/mL (0.0-4.0) 02/28/17 05:25 CK-MB (CK-2) Rel Index 1.2 (0-4) 02/28/17 05:25 Troponin T < 0.010 ng/mL (0.00-0.029) 02/28/17 05:25 Total Protein 6.9 g/dL (6.3-8.2) 02/28/17 05:25 Albumin 3.6 g/dL (3.9-5) L 02/28/17 05:25 Albumin/Globulin Ratio 1.1 % 02/28/17 05:25 Triglycerides 95 mg/dL (2-149) 02/28/17 11:21 Cholesterol 178 mg/dL (50-199) 02/28/17 11:21 LDL Cholesterol Direct 121 mg/dL (50-130) 02/28/17 11:21 HDL Cholesterol 38 mg/dL (40-59) L 02/28/17 11:21 Cholesterol/HDL Ratio 4.68 % 02/28/17 11:21 Urine Opiates Screen Presumptive negative 02/28/17 11:08 Urine Methadone Screen Presumptive negative 02/28/17 11:08 Ur Barbiturates Screen Presumptive negative 02/28/17 11:08 Ur Phencyclidine Scrn Presumptive negative 02/28/17 11:08 Ur Amphetamines Screen Presumptive negative 02/28/17 11:08 U Benzodiazepines Scrn Presumptive negative 02/28/17 11:08 Urine Cocaine Screen Presumptive negative 02/28/17 11:08 U Marijuana (THC) Screen Presumptive negative 02/28/17 11:08 Drugs of Abuse Note Disclamer 02/28/17 11:08
[2017-03-02] MEDS: XANAX PO PRN (21:28)
[2017-03-02] MEDS: TYLENOL PO PRN (21:29)
[2017-03-03] MEDS: ZESTRIL PO SCH (09:54)
[2017-03-03] MEDS: PROCARDIA XL PO SCH (09:55)
[2017-03-03] MEDS: COREG PO SCH ×2 (09:55→22:07)
[2017-03-03] MEDS: PLAVIX PO SCH (09:55)
[2017-03-03] MEDS: PEPCID PO SCH ×2 (09:55→22:07)
[2017-03-03] MEDS: HCTZ PO SCH (09:56)
[2017-03-03] MEDS: LOVENOX SUB-Q SCH (09:56)
[2017-03-03] MEDS: BABY ASPIRIN PO SCH (09:56)
[2017-03-03] MEDS: HABITROL TD SCH (09:57)
--- NOTE | 2017-03-03 15:05 | Progress Note ---
Assessment and Plan Assessment and plan: --Acute CVA with left-sided hemiparesis Not a candidate for TPA, aspirin , Plavix and statin Physical therapy occupational therapy and speech therapy, Neurology following --History of recurrent CVA Patient had TIA in 2011 and CVA with left-sided weakness in 2013 Holter monitoring to rule out paroxysmal A. fib follow hypercoagulable workup hematology consultation Pending JUAN JOSE, rule out cardioembolic source --Malignant hypertension, well controlled Secondary to noncompliance, resume home antihypertensive medications As well as when necessary hydralazine, --Anxiety and depression No suicidal thoughts and ideation, low-dose Xanax Psych evaluation --Ongoing tobacco use Smoking cessation counseling done, patient strongly advised to quit tobacco use --Medical noncompliance blood pressure medications advised to comply with his medications and diet --DVT prophylaxis, With Lovenox Physical therapy occupational therapy rehabilitation inpatient versus subacute when medically stable Plan of care discussed with the patient as well as his nurse Acute rehabilitation screen Patient's condition treatment plan discussed in detail with the patient , his , and other family members History Interval history: Patient seen and evaluated in his room this morning medical records reviewed Family members at the bedside, patient is depressed and emotional Denies suicidal thoughts or suicidal ideation Alert and awake responding appropriately Vital signs reviewed Hospitalist Physical - Constitutional Vitals: Temp Pulse Resp BP Pulse Ox 98.1 F 90 20 144/100 94 03/03/17 07:32 03/03/17 07:32 03/03/17 07:32 03/03/17 07:32 03/03/17 07:32 General appearance: Present: no acute distress, well-nourished - EENT Eyes: Present: PERRL, EOM intact - Neck Neck: Present: supple, normal ROM - Respiratory Respiratory effort: normal Respiratory: bilateral: diminished, negative: rales, rhonchi, wheezing - Cardiovascular Rhythm: regular Heart Sounds: Present: S1 & S2 - Extremities Extremities: no ischemia, pulses intact, pulses symmetrical Peripheral Pulses: within normal limits - Abdominal General gastrointestinal: soft, non-tender, non-distended, normal bowel sounds - Integumentary Integumentary: Present: clear, warm - Psychiatric Psychiatric: appropriate mood/affect, depressed - Neurologic Neurologic: other (left hemiparesis) Results - Labs CBC & Chem 7: 02/28/17 05:25 02/28/17 05:25 Labs: Laboratory Last Values WBC 10.4 K/mm3 (4.5-11.0) 02/28/17 05:25 RBC 5.48 M/mm3 (3.65-5.03) H 02/28/17 05:25 Hgb 15.4 gm/dl (11.8-15.2) H 02/28/17 05:25 Hct 47.0 % (35.5-45.6) H 02/28/17 05:25 MCV 86 fl (84-94) 02/28/17 05:25 MCH 28 pg (28-32) 02/28/17 05:25 MCHC 33 % (32-34) 02/28/17 05:25 RDW 14.8 % (13.2-15.2) 02/28/17 05:25 Plt Count 233 K/mm3 (140-440) 02/28/17 05:25 Lymph % (Auto) 22.3 % (13.4-35.0) 02/28/17 05:25 Mclennan % (Auto) 8.6 % (0.0-7.3) H 02/28/17 05:25 Eos % (Auto) 1.2 % (0.0-4.3) 02/28/17 05:25 Baso % (Auto) 0.7 % (0.0-1.8) 02/28/17 05:25 Lymph # 2.3 K/mm3 (1.2-5.4) 02/28/17 05:25 Mclennan # 0.9 K/mm3 (0.0-0.8) H 02/28/17 05:25 Eos # 0.1 K/mm3 (0.0-0.4) 02/28/17 05:25 Baso # 0.1 K/mm3 (0.0-0.1) 02/28/17 05:25 Seg Neutrophils % 67.2 % (40.0-70.0) 02/28/17 05:25 Seg Neutrophils # 6.9 K/mm3 (1.8-7.7) 02/28/17 05:25 ESR 1 mm/Hr (0-20) 02/28/17 05:25 PT 12.5 Sec. (12.2-14.9) 02/28/17 05:25 INR 0.94 (0.87-1.13) 02/28/17 05:25 APTT 33.4 Sec. (24.2-36.6) 02/28/17 05:25 Thrombin Time 17.9 Sec. (15.1-19.6) 02/28/17 05:25 Sodium 141 mmol/L (137-145) 02/28/17 05:25 Potassium 3.8 mmol/L (3.6-5.0) 02/28/17 05:25 Chloride 104.4 mmol/L (98-107) 02/28/17 05:25 Carbon Dioxide 23 mmol/L (22-30) 02/28/17 05:25 Anion Gap 17 mmol/L 02/28/17 05:25 BUN 15 mg/dL (9-20) 02/28/17 05:25 Creatinine 1.0 mg/dL (0.8-1.5) 02/28/17 05:25 Estimated GFR > 60 ml/min 02/28/17 05:25 BUN/Creatinine Ratio 15.00 % 02/28/17 05:25 Glucose 134 mg/dL (75-100) H 02/28/17 05:25 Hemoglobin A1c 5.9 % (4-6) 02/28/17 05:25 Calcium 8.6 mg/dL (8.4-10.2) 02/28/17 05:25 Total Bilirubin 0.4 mg/dL (0.1-1.2) 02/28/17 05:25 AST 12 units/L (5-40) 02/28/17 05:25 ALT 13 units/L (7-56) 02/28/17 05:25 Alkaline Phosphatase 91 units/L (35-129) 02/28/17 05:25 Total Creatine Kinase 125 units/L (55-170) 02/28/17 05:25 CK-MB (CK-2) 1.6 ng/mL (0.0-4.0) 02/28/17 05:25 CK-MB (CK-2) Rel Index 1.2 (0-4) 02/28/17 05:25 Troponin T < 0.010 ng/mL (0.00-0.029) 02/28/17 05:25 Total Protein 6.9 g/dL (6.3-8.2) 02/28/17 05:25 Albumin 3.6 g/dL (3.9-5) L 02/28/17 05:25 Albumin/Globulin Ratio 1.1 % 02/28/17 05:25 Triglycerides 95 mg/dL (2-149) 02/28/17 11:21 Cholesterol 178 mg/dL (50-199) 02/28/17 11:21 LDL Cholesterol Direct 121 mg/dL (50-130) 02/28/17 11:21 HDL Cholesterol 38 mg/dL (40-59) L 02/28/17 11:21 Cholesterol/HDL Ratio 4.68 % 02/28/17 11:21 Urine Opiates Screen Presumptive negative 02/28/17 11:08 Urine Methadone Screen Presumptive negative 02/28/17 11:08 Ur Barbiturates Screen Presumptive negative 02/28/17 11:08 Ur Phencyclidine Scrn Presumptive negative 02/28/17 11:08 Ur Amphetamines Screen Presumptive negative 02/28/17 11:08 U Benzodiazepines Scrn Presumptive negative 02/28/17 11:08 Urine Cocaine Screen Presumptive negative 02/28/17 11:08 U Marijuana (THC) Screen Presumptive negative 02/28/17 11:08 Drugs of Abuse Note Disclamer 02/28/17 11:08
--- NOTE | 2017-03-04 08:43 | Consultation ---
History of Present Illness Consult date: 03/04/17 Requesting physician: WILIAM ROPER Consult reason: other (CVA) History of present illness: The patient is a 36 YO male with a past medical history significant for HTN, TIA in 2013, CVA with residual left-sided weakness in 2013, and medication noncompliance. He is previously unknown to our practice. He presented on 02/28 with c/o left-sided weakness since 3:40AM. Following admission, his MRI brain confirmed acute LEONORA infarct and cardiology has been consulted for JUAN JOSE to r/o cardioembolic source of CVA. Hypercoagulable work-up per primary is pending. On evaluation, the pt still c/o left sided weakness. He denies any cardiac complaints, including chest pain, SOB, palpitations, n/v, diaphoresis, dizziness , or syncope. He denies any history of cardiac arrhythmias, DE, cardiac stents, or heart failure. He denies any precipitating, aggravating, or alleviating factors associated with his symptoms. Past History Past Medical History: hypertension, stroke (with residual left-sided weakness) Past Surgical History: hernia repair Social history: lives with family, smoking (ongoing tobacco use 10 cigarettes per day for many years), full code. denies: prescription drug abuse, IV drug use Family history: hypertension Medications and Allergies Allergies Allergy/AdvReac Type Severity Reaction Status Date / Time No Known Allergies Allergy Unverified 02/28/17 05:50 Home Medications Medication Instructions Recorded Confirmed Last Taken Type Aspirin EC 81 mg PO DAILY 02/28/17 02/28/17 Unknown History AtorvaSTATin [Lipitor] 40 mg PO DAILY 02/28/17 02/28/17 Unknown History Carvedilol [Coreg] 25 mg PO BID 02/28/17 02/28/17 Unknown History Hydrochlorothiazide [HCTZ] 25 mg PO DAILY 02/28/17 02/28/17 Unknown History Lisinopril [Zestril] 40 mg PO DAILY 02/28/17 02/28/17 Unknown History NIFEdipine [Nifedipine ER] 60 mg PO DAILY 02/28/17 02/28/17 Unknown History Active Meds: Active Medications Acetaminophen (Tylenol) 650 mg PO Q4H PRN PRN Reason: Pain, Mild (1-3) Last Admin: 03/02/17 21:29 Dose: 650 mg Alprazolam (Xanax) 0.25 mg PO Q8H PRN PRN Reason: Anxiety Last Admin: 03/02/17 21:28 Dose: 0.25 mg Aspirin (Baby Aspirin) 81 mg PO QDAY [facility] Last Admin: 03/03/17 09:56 Dose: 81 mg Atorvastatin Calcium (Lipitor) 40 mg PO QHS [facility] Last Admin: 03/03/17 22:07 Dose: 40 mg Carvedilol (Coreg) 25 mg PO BID [facility] Last Admin: 03/03/17 22:07 Dose: 25 mg Clopidogrel Bisulfate (Plavix) 75 mg PO QDAY [facility] Last Admin: 03/03/17 09:55 Dose: 75 mg Enoxaparin Sodium (Lovenox) 40 mg SUB-Q QDAY [facility] Last Admin: 03/03/17 09:56 Dose: 40 mg Famotidine (Pepcid) 20 mg PO BID [facility] Last Admin: 03/03/17 22:07 Dose: 20 mg Hydralazine HCl (Apresoline) 10 mg IV Q4HR PRN PRN Reason: Hypertension Last Admin: 03/02/17 05:00 Dose: 10 mg Hydrochlorothiazide (Hctz) 25 mg PO DAILY [facility] Last Admin: 03/03/17 09:56 Dose: 25 mg Labetalol HCl (Normodyne) 10 mg IV Q6H PRN PRN Reason: Hypertension Lisinopril (Zestril) 40 mg PO DAILY [facility] Last Admin: 03/03/17 09:54 Dose: 40 mg Nicotine (Habitrol) 14 mg TD QDAY [facility] Last Admin: 03/03/17 09:57 Dose: 14 mg Nifedipine (Procardia Xl) 60 mg PO DAILY [facility] Last Admin: 03/03/17 09:55 Dose: 60 mg Review of Systems Constitutional: no weight loss, no weight gain, no fever, no chills, no sweats Ears, nose, mouth and throat: no ear pain, no nose pain, no sinus pressure, no sinus pain, no epistaxis, no bleeding gums, no dental pain, no mouth pain, no dysphagia, no hoarseness, no sore throat Cardiovascular: high blood pressure, no chest pain, no orthopnea, no palpitations, no rapid/irregular heart beat, no edema, no syncope, no lightheadedness, no shortness of breath, no dyspnea on exertion, no paroxysmal nocturnal dyspnea, no leg edema Respiratory: no cough, no shortness of breath, no dyspnea on exertion, no congestion, no wheezing, no pain on inspiration Gastrointestinal: no abdominal pain, no nausea, no vomiting, no diarrhea, no constipation, no change in bowel habits Genitourinary Male: no dysuria, no hematuria, no flank pain, no discharge, no urinary frequency, no urinary hesitancy Musculoskeletal: muscle weakness (left-sided ), limitation of motion, gait dysfunction, no neck stiffness, no neck pain, no shooting arm pain, no arm numbness/tingling, no shooting leg pain, no leg numbness/tingling, no redness of joints Integumentary: no rash, no pruritis, no redness, no sores, no wounds Neurological: weakness (left-sided), no head injury, no numbness, no tingling, no seizures, no syncope, no tremors, no headaches, no change in speech, no change in mentation, no confusion Endocrine: no cold intolerance, no heat intolerance Hematologic/Lymphatic: no easy bruising, no easy bleeding, no lymphadenopathy Allergic/Immunologic: no urticaria, no wheezing, no persistent infections Physical Examination Last Vital Signs Temp 98.7 F 03/04/17 04:00 Pulse 97 H 03/04/17 04:00 Resp 19 03/04/17 04:00 BP 159/101 03/04/17 04:00 Pulse Ox 95 03/04/17 04:00 General appearance: no acute distress HEENT: Positive: PERRL, Normocephaly, Mucus Membranes Moist Neck: Positive: neck supple, trachea midline Cardiac: Positive: Reg Rate and Rhythm, S1/S2 Lungs: Positive: Normal Exam, clear to auscultation, Normal Breath Sounds Neuro: Positive: Weakness (left-sided ) Abdomen: Positive: Unremarkable, Soft, Active Bowel Sounds. Negative: Tender Skin: Positive: Clear. Negative: Rash, Wound Musculoskeletal: No Fluid Collection, No Pain, Normal Range of Motion Extremities: Present: upper extr. pulses, lower extr. pulses. Absent: edema Results 02/28/17 05:25 02/28/17 05:25 - Imaging and Cardiology Echo: report reviewed (02/28/2017: EF 55 - 60%) EKG: report reviewed, image reviewed EKG interpretations - Telemetry EKG Rhythm: Sinus Rhythm - EKG Sinus rhythms and dysrhythmias: sinus rhythm Repolarization changes or abnormalities: nonspecific abnormality, ST segment, and/or T wave Assessment and Plan Assessment: Acute CVA with left hemiparesis - hypercoagulable w/u pending. HTN H/o TIA in 2011, CVA in 2013 with residual left-sided weakness - hypercoagulable w/u pending. Tobacco use - cessation encouraged. Medication noncompliance - compliance encouraged. Plan: Cont current management. Proceed with JUAN JOSE this AM. Await findings. Indications, potential risks, and benefits of JUAN JOSE reviewed with pt. Pt is agreeable to proceed with JUAN JOSE. Consents obtained. The patient has been seen in conjunction with Dr. Rosalba Mccormick who agrees with the assessment and plan of care.
--- NOTE | 2017-03-04 09:52 | Anesthesia Consultation ---
Anesthesia Consult and Med Hx Date of service: 03/04/17 - Airway Anesthetic Teeth Evaluation: Good Mallampati Class: Class III Intubation Access Assessment: Possibly Difficult - Pre-Operative Health Status ASA Pre-Surgery Classification: ASA4 Proposed Anesthetic Plan: MAC - Cardiovascular System Hx Hypertension: Yes - Central Nervous System CVA: Yes (4 strokes, last one a week ago, left side paralysis)
[2017-03-04] MEDS ORDERED: VERSED ONE (09:54)
[2017-03-04] MEDS ORDERED: DIPRIVAN 10 MG/ML IV ONE ×2 (09:55)
[2017-03-04] MEDS ORDERED: XYLOCAINE MPF 2% ONE (09:55)
--- NOTE | 2017-03-04 09:55 | Anesthesia Day of Surgery ---
Anesthesia Day of Surgery - Day of Surgery Patient Examined: Yes Patient H&P Reviewed: Yes Patient is NPO: Yes Beta Blockers: Yes
[2017-03-04] MEDS ORDERED: NACL 0.9% 500 ML 500 ML ONE (09:59)
[2017-03-04] MEDS ORDERED: HURRICAINE ONE 20% TOPICAL SPRAY MM NR (10:00)
--- NOTE | 2017-03-04 10:16 | Consultation ---
REASON FOR CONSULTATION: Evaluate for hypercoagulability. History is obtained from the patient's chart because the patient is essentially nonverbal. HISTORY OF PRESENT ILLNESS: The patient is a 36-year-old male who had TIA in 2011 and acute CVA was left paresthesias in 2013. According to his who was present in the Emergency Room during history taking by the ER MD at [facility], there was an extensive evaluation in while in the [place] and both times the workup was negative. He now presents to [facility] with worsening of left-sided weakness in the morning, unfortunately the patient presented to the ER, CT of the head without contrast showed no acute craniocaudal abnormalities. The patient was deemed not a candidate for TPA. He has a history significant for hypertension, but has been noncompliant with medications. He was noted to have malignant hypertension with blood pressure of 163/113 and was given antihypertensives with slight improvement. PAST MEDICAL HISTORY: Hypertension spoke with left hemiparesis and hyperlipidemia. The patient when asked whether he had any family that had early strokes or blood clots shake his head no. PAST SURGICAL HISTORY: Hernia repair. SOCIAL HISTORY: Lives with his family. He is still smoking cigarettes approximately half a pack a day. He has past medical history of alcohol abuse and is still using alcohol occasionally. He has no history of recreational drug use. FAMILY HISTORY: Hypertension. ALLERGIES: No known drug allergies. MEDICATIONS AT HOME: Aspirin 81 mg, Lipitor 40 mg, carvedilol 25 mg p.o. b.i.d., hydrochlorothiazide 25 mg daily, lisinopril 40 mg, nifedipine 60 mg daily. REVIEW OF SYSTEMS: Obtained from the patient's chart as he is initially was not speaking to me although I could tell he was listening. CONSTITUTIONAL: No fevers, chills or weight loss. HEENT: No nasal congestion or discharge. CARDIOVASCULAR: No chest pain, palpitations, or orthopnea. RESPIRATORY: No shortness of breath or cough. GASTROINTESTINAL: No abdominal pain, nausea, or vomiting. GENITOURINARY: No dysuria or hematuria. MUSCULOSKELETAL: No myalgias or arthralgias left hemiparesis. INTEGUMENTARY: No rash. NEUROLOGIC: Weakness, left hemiparesis, no seizures. PSYCH: The patient appeared somewhat distressed during my visit. He had one episode where he appears to be chronic. ENDOCRINE: No heat or cold intolerance. HEMATOLOGIC: No easy bruising or prolonged bleeding. ALLERGIC: No rash, urticaria. PHYSICAL EXAMINATION: VITAL SIGNS: Temperature 98.1, blood pressure 144/100, pulse 90, respirations 20. GENERAL APPEARANCE: He is a well-nourished, well-developed -[place] male lying supine. HEENT: Normocephalic, atraumatic. Sclerae are anicteric. NECK: Trachea is midline. LUNGS: Clear to auscultation somewhat diminished at the bases. No rales or wheeze. CARDIOVASCULAR: Regular rate and rhythm, normal S1, S2. ABDOMEN: Not distended. Bowel sounds present. Soft and nontender. EXTREMITIES: Without edema. He had left-sided weakness. PSYCHIATRIC: He was initially nonverbal, however, I returned with his nurse who had told me that the patient could speak and patient was able to shake his head and to say no. LABORATORY DATA: Hemoglobin on admission 15.4, hematocrit 47, MCV 86. White count 10.4 and platelet count 233. PT 12.5, INR 0.94, PTT 33.4, Thromboplastin time 17.9, BUN 15, creatinine 1, calcium 8.6, total bilirubin 0.4, AST 12, ALT 13, alkaline phosphatase 91, albumin 3.6, troponin less than 0.010. His toxicology screen was negative. IMAGING STUDIES: CT angio of the head showed focal narrowing of the mid portion with less than 50% narrowing suggesting focal intracranial arthrosclerosis. There is no dissection or occlusion. Intracranial anterior circulation is unremarkable. CT of the neck showed no stenosis, dissection or thrombosis. Brain MRI showed a small enlarged areas of acute to subacute ischemia in the right anterior cerebral artery territory no evidence for hemorrhage. Chronic focal infarcts and the bilateral basal ganglia in the right palm and 2 or 3 chronic focal infarcts measuring less than 1 cm at cerebellar hemispheres. No large chronic infracts, midline structures are central normal ventricular size. ASSESSMENT AND PLAN: 1. History of stroke with left hemiparesis also with uncontrolled hypertension, possibly related to noncompliance with medication, lifestyle continued nicotine use, and previous history of alcohol abuse. Hypercoag workup has been ordered and await results. The patient has been scheduled for transesophageal echo per Cardiology. Neurology also following him. Compliance with medications and followup discussed with the patient while at bedside. 2. Psych would also possible depression. The patient was initially nonverbal and per RN, the patient has been seemingly discouraged because of his repeat stroke and was nonverbal initially with his nurse. Would recommend psych evaluation for depression. Further recommendations will follow results of hypercoag workup. JOB# [id number] RRS/NTS JEANNETTED
--- NOTE | 2017-03-04 10:56 | Post Anesthesia Evaluation ---
- Post Anesthesia Evaluation Patient Participated: Yes Airway Patent: Yes Stable Respiratory Function: Yes Temp > 96.8F: Yes Pain Manageable: Yes Adequeate Hydration: Yes Anesthesia Complications: No Block Receding Appropriately: Not Applicable
[2017-03-04] MEDS ORDERED: NACL 0.9% 500 ML 500 ML IV SCH (11:00)
--- NOTE | 2017-03-04 11:57 | Event Note ---
Date: 03/04/17 JUAN JOSE with no acute findings, no evidence of intracardiac thrombus or smoke. Full report to follow. Currently stable cardiac status. Will see PRN. Ailyn JEAN NP / DR. Rosalba RODRIGUEZ
[2017-03-04] MEDS: HABITROL TD SCH (12:09)
[2017-03-04] MEDS: LOVENOX SUB-Q SCH (12:09)
[2017-03-04] MEDS: PLAVIX PO SCH (12:10)
[2017-03-04] MEDS: BABY ASPIRIN PO SCH (12:10)
[2017-03-04] MEDS: PROCARDIA XL PO SCH (12:10)
[2017-03-04] MEDS: COREG PO SCH ×2 (12:10→21:31)
[2017-03-04] MEDS: HCTZ PO SCH (12:10)
[2017-03-04] MEDS: ZESTRIL PO SCH (12:11)
[2017-03-04] MEDS: PEPCID PO SCH ×2 (12:11→21:31)
--- NOTE | 2017-03-04 14:08 | Hem/Onc Progress Note ---
Assessment and Plan - Patient Problems (1) Stroke Current Visit: Yes Status: Acute Qualifiers: CVA mechanism: embolism Precerebral and cerebral artery: unspecified cerebral artery Laterality of affected vessel: L Qualified Code(s): I63.40 - Cerebral infarction due to embolism of unspecified cerebral artery Plan to address problem: Evaluate for hypercoaguble state. Stroke with left hemiparesis more likely related to poorly controlled hypertension due to noncompliance. Await results of work up. Supportive for now. (2) Depression Current Visit: Yes Status: Acute Qualifiers: Depression Type: D Major depression recurrence: M Active/Remission status : A Major depression episode severity: M Psychotic features: P Trimester: T Plan to address problem: Very flat affect during evaluation yesterday. Recommend psychiatric evaluation and treatment for depression. (3) Hypertension Current Visit: Yes Status: Acute Qualifiers: Hypertension type: H Plan to address problem: Encouraged compliance with medication and follow up. Low salt diet. Subjective Date of service: 03/04/17 Interval history: No family in room. Pt resting comfortably. Greeted pt and he appeared to hear me but refused to acknowledge my presence. Do not respond to request to wiggle fingers, etc. No O2. Appeared comfortable. Objective - Constitutional Vitals: Last Vital Signs Temp 98.5 F 03/04/17 10:32 Pulse 99 H 03/04/17 12:11 Resp 18 03/04/17 10:45 BP 133/88 03/04/17 12:11 Pulse Ox 100 03/04/17 10:45 General appearance: no acute distress Performance status: 3-limited selfcare - Respiratory Respiratory effort: Positive: normal Respiratory: bilateral: CTA - Cardiovascular Rhythm: regular Heart Sounds: Present: S1 & S2 Extremities: no ischemia, No edema, normal temperature, normal color - Gastrointestinal General gastrointestinal: Present: soft, non-tender, non-distended, normal bowel sounds - Genitourinary Male genitourinary: Present: deferred - Integumentary Integumentary: clear, warm, dry
--- NOTE | 2017-03-04 14:24 | Progress Note ---
Assessment and Plan Assessment and plan: --Acute CVA with left-sided hemiparesis Not a candidate for TPA, aspirin , Plavix and statin Physical therapy occupational therapy and speech therapy Neurology following --History of recurrent CVA Patient had TIA in 2011 and CVA with left-sided weakness in 2013 Holter monitoring to rule out paroxysmal A. fib follow hypercoagulable workup hematology consultation Carotid Doppler negative ,JUAN JOSE negative for cardioembolic phenomenon --Malignant hypertension, well controlled Secondary to noncompliance, resume home antihypertensive medications As well as when necessary hydralazine, --Anxiety and depression No suicidal thoughts and ideation, low-dose Xanax follow Psych evaluation --Ongoing tobacco use Smoking cessation counseling done, patient strongly advised to quit tobacco use --Medical noncompliance blood pressure medications advised to comply with his medications and diet --DVT prophylaxis, With Lovenox Physical therapy occupational therapy rehabilitation inpatient versus subacute when medically stable Plan of care discussed with the patient as well as his nurse case management follow Acute rehabilitation screen History Interval history: Patient seen and evaluated medical records reviewed And underwent JUAN JOSE, normal study Patient is very quiet minimally communicative No new events reported by nursing staff Hospitalist Physical - Constitutional Vitals: Temp Pulse Resp BP Pulse Ox 98.5 F 99 H 18 133/88 100 03/04/17 10:32 03/04/17 12:11 03/04/17 10:45 03/04/17 12:11 03/04/17 10:45 General appearance: Present: no acute distress, well-nourished - EENT Eyes: Present: PERRL, EOM intact - Neck Neck: Present: supple, normal ROM - Respiratory Respiratory effort: normal Respiratory: negative: rales, rhonchi, wheezing - Cardiovascular Rhythm: regular Heart Sounds: Present: S1 & S2 - Extremities Extremities: no ischemia, pulses intact, pulses symmetrical Peripheral Pulses: within normal limits - Abdominal General gastrointestinal: soft, non-tender, non-distended, normal bowel sounds - Integumentary Integumentary: Present: clear, warm - Psychiatric Psychiatric: depressed - Neurologic Neurologic: other (CVA with left-sided hemiparesis) Results - Labs CBC & Chem 7: 02/28/17 05:25 02/28/17 05:25 Labs: Laboratory Last Values WBC 10.4 K/mm3 (4.5-11.0) 02/28/17 05:25 RBC 5.48 M/mm3 (3.65-5.03) H 02/28/17 05:25 Hgb 15.4 gm/dl (11.8-15.2) H 02/28/17 05:25 Hct 47.0 % (35.5-45.6) H 02/28/17 05:25 MCV 86 fl (84-94) 02/28/17 05:25 MCH 28 pg (28-32) 02/28/17 05:25 MCHC 33 % (32-34) 02/28/17 05:25 RDW 14.8 % (13.2-15.2) 02/28/17 05:25 Plt Count 233 K/mm3 (140-440) 02/28/17 05:25 Lymph % (Auto) 22.3 % (13.4-35.0) 02/28/17 05:25 [place] % (Auto) 8.6 % (0.0-7.3) H 02/28/17 05:25 Eos % (Auto) 1.2 % (0.0-4.3) 02/28/17 05:25 Baso % (Auto) 0.7 % (0.0-1.8) 02/28/17 05:25 Lymph # 2.3 K/mm3 (1.2-5.4) 02/28/17 05:25 [place] # 0.9 K/mm3 (0.0-0.8) H 02/28/17 05:25 Eos # 0.1 K/mm3 (0.0-0.4) 02/28/17 05:25 Baso # 0.1 K/mm3 (0.0-0.1) 02/28/17 05:25 Seg Neutrophils % 67.2 % (40.0-70.0) 02/28/17 05:25 Seg Neutrophils # 6.9 K/mm3 (1.8-7.7) 02/28/17 05:25 ESR 1 mm/Hr (0-20) 02/28/17 05:25 PT 12.5 Sec. (12.2-14.9) 02/28/17 05:25 INR 0.94 (0.87-1.13) 02/28/17 05:25 APTT 33.4 Sec. (24.2-36.6) 02/28/17 05:25 Thrombin Time 17.9 Sec. (15.1-19.6) 02/28/17 05:25 Sodium 141 mmol/L (137-145) 02/28/17 05:25 Potassium 3.8 mmol/L (3.6-5.0) 02/28/17 05:25 Chloride 104.4 mmol/L (98-107) 02/28/17 05:25 Carbon Dioxide 23 mmol/L (22-30) 02/28/17 05:25 Anion Gap 17 mmol/L 02/28/17 05:25 BUN 15 mg/dL (9-20) 02/28/17 05:25 Creatinine 1.0 mg/dL (0.8-1.5) 02/28/17 05:25 Estimated GFR > 60 ml/min 02/28/17 05:25 BUN/Creatinine Ratio 15.00 % 02/28/17 05:25 Glucose 134 mg/dL (75-100) H 02/28/17 05:25 Hemoglobin A1c 5.9 % (4-6) 02/28/17 05:25 Calcium 8.6 mg/dL (8.4-10.2) 02/28/17 05:25 Total Bilirubin 0.4 mg/dL (0.1-1.2) 02/28/17 05:25 AST 12 units/L (5-40) 02/28/17 05:25 ALT 13 units/L (7-56) 02/28/17 05:25 Alkaline Phosphatase 91 units/L (35-129) 02/28/17 05:25 Total Creatine Kinase 125 units/L (55-170) 02/28/17 05:25 CK-MB (CK-2) 1.6 ng/mL (0.0-4.0) 02/28/17 05:25 CK-MB (CK-2) Rel Index 1.2 (0-4) 02/28/17 05:25 Troponin T < 0.010 ng/mL (0.00-0.029) 02/28/17 05:25 Total Protein 6.9 g/dL (6.3-8.2) 02/28/17 05:25 Albumin 3.6 g/dL (3.9-5) L 02/28/17 05:25 Albumin/Globulin Ratio 1.1 % 02/28/17 05:25 Triglycerides 95 mg/dL (2-149) 02/28/17 11:21 Cholesterol 178 mg/dL (50-199) 02/28/17 11:21 LDL Cholesterol Direct 121 mg/dL (50-130) 02/28/17 11:21 HDL Cholesterol 38 mg/dL (40-59) L 02/28/17 11:21 Cholesterol/HDL Ratio 4.68 % 02/28/17 11:21 Urine Opiates Screen Presumptive negative 02/28/17 11:08 Urine Methadone Screen Presumptive negative 02/28/17 11:08 Ur Barbiturates Screen Presumptive negative 02/28/17 11:08 Ur Phencyclidine Scrn Presumptive negative 02/28/17 11:08 Ur Amphetamines Screen Presumptive negative 02/28/17 11:08 U Benzodiazepines Scrn Presumptive negative 02/28/17 11:08 Urine Cocaine Screen Presumptive negative 02/28/17 11:08 U Marijuana (THC) Screen Presumptive negative 02/28/17 11:08 Drugs of Abuse Note Disclamer 02/28/17 11:08
--- NOTE | 2017-03-04 18:04 | Consultation ---
History of Present Illness - Reason for Consult Consult date: 03/04/17 Reason for consult: Mental Health Evaluation Requesting physician: WILIAM ROPER - Chief Complaint Chief complaint: "Patient could not verbally communicate" - History of Present Psychiatric Illness This is a 36-year-old AA male admitted to [facility] for a neurological abnormality. Psychiatry was consulted to see patient for depression and anxiety. Today patient was able to nod to some questions when asked. I asked did he feel down about his current medical condition and he nodded to this question. No gestures of SI/HI's or AVH's, but present with a flat affect. Medications and Allergies Allergies Allergy/AdvReac Type Severity Reaction Status Date / Time No Known Allergies Allergy Unverified 02/28/17 05:50 Home Medications Medication Instructions Recorded Confirmed Last Taken Type Aspirin EC 81 mg PO DAILY 02/28/17 02/28/17 Unknown History AtorvaSTATin [Lipitor] 40 mg PO DAILY 02/28/17 02/28/17 Unknown History Carvedilol [Coreg] 25 mg PO BID 02/28/17 02/28/17 Unknown History Hydrochlorothiazide [HCTZ] 25 mg PO DAILY 02/28/17 02/28/17 Unknown History Lisinopril [Zestril] 40 mg PO DAILY 02/28/17 02/28/17 Unknown History NIFEdipine [Nifedipine ER] 60 mg PO DAILY 02/28/17 02/28/17 Unknown History Active Meds: Active Medications Acetaminophen (Tylenol) 650 mg PO Q4H PRN PRN Reason: Pain, Mild (1-3) Last Admin: 03/02/17 21:29 Dose: 650 mg Alprazolam (Xanax) 0.25 mg PO Q8H PRN PRN Reason: Anxiety Last Admin: 03/02/17 21:28 Dose: 0.25 mg Aspirin (Baby Aspirin) 81 mg PO QDAY [facility] Last Admin: 03/04/17 12:10 Dose: 81 mg Atorvastatin Calcium (Lipitor) 80 mg PO QHS [facility] Benzocaine (Hurricaine One 20% Topical [place]) 3 spray MM PREOP NR Stop: 03/04/17 21:00 Last Admin: 03/04/17 10:10 Dose: 3 spray Carvedilol (Coreg) 25 mg PO BID [facility] Last Admin: 03/04/17 12:10 Dose: 25 mg Clopidogrel Bisulfate (Plavix) 75 mg PO QDAY [facility] Last Admin: 03/04/17 12:10 Dose: 75 mg Enoxaparin Sodium (Lovenox) 40 mg SUB-Q QDAY [facility] Last Admin: 03/04/17 12:09 Dose: 40 mg Famotidine (Pepcid) 20 mg PO BID [facility] Last Admin: 03/04/17 12:11 Dose: 20 mg Hydralazine HCl (Apresoline) 10 mg IV Q4HR PRN PRN Reason: Hypertension Last Admin: 03/02/17 05:00 Dose: 10 mg Hydrochlorothiazide (Hctz) 25 mg PO DAILY [facility] Last Admin: 03/04/17 12:10 Dose: 25 mg Sodium Chloride (Nacl 0.9% 500 Ml) 500 mls @ 50 mls/hr IV DIRECT [facility] Last Admin: 03/04/17 10:10 Dose: 50 mls/hr Labetalol HCl (Normodyne) 10 mg IV Q6H PRN PRN Reason: Hypertension Lisinopril (Zestril) 40 mg PO DAILY [facility] Last Admin: 03/04/17 12:11 Dose: 40 mg Nicotine (Habitrol) 14 mg TD QDAY [facility] Last Admin: 03/04/17 12:09 Dose: 14 mg Nifedipine (Procardia Xl) 60 mg PO DAILY [facility] Last Admin: 03/04/17 12:10 Dose: 60 mg Past psychiatric history - Past Medical History Past Medical History: other (Prior stroke) Past Surgical History: No surgical history - past Psychiatric treatment and history psychiatric treatment history: Denies a psy hx by noding his head. - Social History Social history: lives with family Mental Status Exam - Vital signs Last Vital Signs Temp 98.1 F 03/04/17 11:30 Pulse 99 H 03/04/17 12:11 Resp 20 03/04/17 11:30 BP 133/88 03/04/17 12:11 Pulse Ox 97 03/04/17 11:30 - Exam Narrative exam: Could not fully compete the MSE. Patient has a acute to subacute ischemia in the right anterior cerebral artery. Orientation: person Affect: flat Mood: congruent with affect Motor activity: other (Feeding himself) Level of consciousness: alert Interaction: cooperative Results Result Diagrams: 02/28/17 05:25 02/28/17 05:25 All other labs normal. Assessment and Plan Assessment and plan: Impression: Need more information to diagnosis patient. No gestures of SI/HI's or AVH's at this time. Per his assigned RN, no distress noted. Acute to subacute ischemia in the right anterior cerebral artery per MRI. Recommendation/Plan: Will gather more information from patient's significant other to help determine treatment plan.
[2017-03-04] MEDS: XANAX PO PRN (21:32)
[2017-03-05 05:42] LABS: Basophils % (Auto) 0.5 % (0.0-1.8); Eosinophils % (Auto) 1.1 % (0.0-4.3); Hematocrit 49.4 % (35.5-45.6); Hemoglobin 15.9 gm/dl (11.8-15.2); Mean Corpuscular HGB Conc 32 % (32-34); Mean Corpuscular Hemoglobin 28 pg (28-32); Mean Corpuscular Volume 87 fl (84-94); Platelet Count 253 K/mm3 (140-440); Red Cell Distribution Width 14.2 % (13.2-15.2)
[2017-03-05 05:50] LABS: BUN/Creatinine Ratio 17.89; Calcium 9.4 mg/dL (8.4-10.2); Chloride 100.2 mmol/L (98-107); Potassium 4.1 mmol/L (3.6-5.0)
--- NOTE | 2017-03-05 08:45 | Hem/Onc Progress Note ---
Assessment and Plan - Patient Problems (1) Stroke Current Visit: Yes Status: Acute Qualifiers: CVA mechanism: embolism Precerebral and cerebral artery: unspecified cerebral artery Laterality of affected vessel: L Qualified Code(s): I63.40 - Cerebral infarction due to embolism of unspecified cerebral artery Plan to address problem: Treatment per Neurology ASA + Plavix. Hypercoag work up ordered but of little value in setting of acute stroke. No further recommendations. Patient can follow up wants discharged from rehab. Subjective Date of service: 03/05/17 Interval history: Patient refuses to open his eyes or speak. Objective - Constitutional Vitals: Last Vital Signs Temp 98.3 F 03/05/17 04:59 Pulse 88 03/05/17 04:59 Resp 20 03/05/17 04:59 BP 128/86 03/05/17 04:59 Pulse Ox 96 03/05/17 04:59 Pain Intensity (0-10): denies any pain General appearance: no acute distress Performance status: 4-completely disabled - Respiratory Respiratory: bilateral: CTA - Cardiovascular Heart Sounds: Present: S1 & S2 - Gastrointestinal General gastrointestinal: Present: soft, non-tender - Musculoskeletal Musculoskeletal: left sided weakness - Labs Lab Results: Laboratory Results - last 24 hr 03/05/17 03/05/17 04:26 04:26 WBC 11.0 RBC 5.70 H Hgb 15.9 H Hct 49.4 H MCV 87 MCH 28 MCHC 32 RDW 14.2 Plt Count 253 Lymph % (Auto) 18.6 [place] % (Auto) 9.4 H Eos % (Auto) 1.1 Baso % (Auto) 0.5 Lymph # 2.0 [place] # 1.0 H Eos # 0.1 Baso # 0.1 Seg Neutrophils % 70.4 H Seg Neutrophils # 7.7 Sodium 139 Potassium 4.1 Chloride 100.2 Carbon Dioxide 24 Anion Gap 19 BUN 34 H Creatinine 1.9 H D Estimated GFR 48 BUN/Creatinine Ratio 17.89 Glucose 129 H Calcium 9.4
--- NOTE | 2017-03-05 09:33 | Event Note ---
Date: 03/05/17 CTA Head/Neck mid basilar athero/stenosis approx 50% but not in relevant vascular distribution to current stroke. JUAN JOSE also w/o thrombus/valve disease per report. 36 YO M Hx TIA in 2011, acute CVA with residual left-sided weakness in 2013 but reportedly negative w/o @ [facility], HTN poorly compliant, and tobacco abuse on ASA 81mg QDay ? compliance p/w wake up 4/6 w/ worsened baseline left- sided hemiparesis. MRI Brain confirms acute LEONORA infarct. 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 CDs neg. LDL 131. TTE neg beyond LVH no thrombus. Plan and Recommendation: 1. No indication for pharmacologic thrombolysis with IV tPA or mechanical thrombectomy due to last known normal > 6 hrs from presentation. Current NIHSS 11. 2. Telemetry bed w/ Q4 hour neuro checks 3. 30 day ambulatory Tele monitor ? pAFib 4. Stroke in [place] Eval: ESR/CRP, Coags, RPR/VDRL, Hypercoag screen-Protein C Activity, Protein S Ag, Antithrombin III, Activated Protein C resistance, Factor V Leiden, RVVT or APLAbs, Beta-2 GP Ab, Fibrinogen, Prothrombin gene 28782N mutation, MTHFR C677T, ELEANOR-1, HIV, ARTIE, Lactic Acid, Homocysteine, Cryoglobulin, Complement level, ANCA, Scl-70 Ab, anti-centromere Ab, Anti-Ro ( SSA)/Anti-La (SSB), CHAPARRITA, Antiproteinase 3, Lipoprotein A. Heme c/s is following 5. Can lower MAPs by 10-15% daily to reach goal SBP 120-160 as permissive HTN period complete 6. Secondary stroke prevention: ASA 325mg Daily x 1 then 81mg QDay, add Plavix 75mg Qday & upgrade to full dose statin therapy (Crestor 20mg or 40mg OR Lipitor 40mg or 80mg Daily OR Zocor 40mg QDay) for goal LDL < 70. No firm indication at this point for therapeutic anticoagulation as pt has not had AFib captured on telemetry monitoring. 7. F/E/N: isotonic IVF prn, prn replete, bedside speech/swallow eval prior to PO intake. 8. DVT Prophylaxis 9. Stroke education, PT/OT/Speech Therapy consults, CM evaluation 10. For any changes in neurologic status, pls obtain STAT CTH w/o contrast and call neurology 11. Neurologically clear for discharge if pt remains stable.
--- NOTE | 2017-03-05 10:37 | Progress Note ---
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 he is not a candidate for tPA. Continue Aspirin , Plavix and Lipitor. Neurology following Acute kidney injury. Creatinine 1.9 today. We'll discontinue lisinopril and HCTZ. Start IV fluid - normal saline. Recheck creatinine tomorrow. Malignant hypertension. Blood pressure is now improved. On [place] XL, Coreg. Was secondary to medical noncompliance. Anxiety and depression. Psychiatry consulted. Medical noncompliance. He has not been taking his antihypertensives. He has been counseled on importance of taking his medications . DVT prophylaxis, With Lovenox Disposition. For subacute rehabilitation when stable. He is not stable for discharge yet. He has acute kidney injury which is being managed History Interval history: Left sided weakness, Depressed Hospitalist Physical - Physical exam Narrative exam: Gen: Not in acute distress HEENT: Atraumatic Neck: supple, no JVD Lungs: Her to auscultation bilaterally, no crackles, no wheeze Heart S1-S2 regular, no murmurs rubs or gallop, Abdomen: soft, non tender,non-distended, normal bowel sounds Ext: No edema, cyanosis or clubbing Neuro: Awake, quiet, left hemiparesis, Psych: depressed - Constitutional Vitals: Temp Pulse Resp BP Pulse Ox 98.3 F 88 20 128/86 96 03/05/17 04:59 03/05/17 04:59 03/05/17 04:59 03/05/17 04:59 03/05/17 04:59 General appearance: Present: no acute distress, well-nourished Results - Labs CBC & Chem 7: 03/05/17 04:26 03/05/17 04:26 Labs: Laboratory Last Values WBC 11.0 K/mm3 (4.5-11.0) 03/05/17 04:26 RBC 5.70 M/mm3 (3.65-5.03) H 03/05/17 04:26 Hgb 15.9 gm/dl (11.8-15.2) H 03/05/17 04:26 Hct 49.4 % (35.5-45.6) H 03/05/17 04:26 MCV 87 fl (84-94) 03/05/17 04:26 MCH 28 pg (28-32) 03/05/17 04:26 MCHC 32 % (32-34) 03/05/17 04:26 RDW 14.2 % (13.2-15.2) 03/05/17 04:26 Plt Count 253 K/mm3 (140-440) 03/05/17 04:26 Lymph % (Auto) 18.6 % (13.4-35.0) 03/05/17 04:26 [place] % (Auto) 9.4 % (0.0-7.3) H 03/05/17 04:26 Eos % (Auto) 1.1 % (0.0-4.3) 03/05/17 04:26 Baso % (Auto) 0.5 % (0.0-1.8) 03/05/17 04:26 Lymph # 2.0 K/mm3 (1.2-5.4) 03/05/17 04:26 [place] # 1.0 K/mm3 (0.0-0.8) H 03/05/17 04:26 Eos # 0.1 K/mm3 (0.0-0.4) 03/05/17 04:26 Baso # 0.1 K/mm3 (0.0-0.1) 03/05/17 04:26 Seg Neutrophils % 70.4 % (40.0-70.0) H 03/05/17 04:26 Seg Neutrophils # 7.7 K/mm3 (1.8-7.7) 03/05/17 04:26 ESR 1 mm/Hr (0-20) 02/28/17 05:25 PT 12.5 Sec. (12.2-14.9) 02/28/17 05:25 INR 0.94 (0.87-1.13) 02/28/17 05:25 APTT 33.4 Sec. (24.2-36.6) 02/28/17 05:25 Thrombin Time 17.9 Sec. (15.1-19.6) 02/28/17 05:25 Sodium 139 mmol/L (137-145) 03/05/17 04:26 Potassium 4.1 mmol/L (3.6-5.0) 03/05/17 04:26 Chloride 100.2 mmol/L (98-107) 03/05/17 04:26 Carbon Dioxide 24 mmol/L (22-30) 03/05/17 04:26 Anion Gap 19 mmol/L 03/05/17 04:26 BUN 34 mg/dL (9-20) H 03/05/17 04:26 Creatinine 1.9 mg/dL (0.8-1.5) H D 03/05/17 04:26 Estimated GFR 48 ml/min 03/05/17 04:26 BUN/Creatinine Ratio 17.89 % 03/05/17 04:26 Glucose 129 mg/dL (75-100) H 03/05/17 04:26 Hemoglobin A1c 5.9 % (4-6) 02/28/17 05:25 Calcium 9.4 mg/dL (8.4-10.2) 03/05/17 04:26 Total Bilirubin 0.4 mg/dL (0.1-1.2) 02/28/17 05:25 AST 12 units/L (5-40) 02/28/17 05:25 ALT 13 units/L (7-56) 02/28/17 05:25 Alkaline Phosphatase 91 units/L (35-129) 02/28/17 05:25 Total Creatine Kinase 125 units/L (55-170) 02/28/17 05:25 CK-MB (CK-2) 1.6 ng/mL (0.0-4.0) 02/28/17 05:25 CK-MB (CK-2) Rel Index 1.2 (0-4) 02/28/17 05:25 Troponin T < 0.010 ng/mL (0.00-0.029) 02/28/17 05:25 Total Protein 6.9 g/dL (6.3-8.2) 02/28/17 05:25 Albumin 3.6 g/dL (3.9-5) L 02/28/17 05:25 Albumin/Globulin Ratio 1.1 % 02/28/17 05:25 Triglycerides 95 mg/dL (2-149) 02/28/17 11:21 Cholesterol 178 mg/dL (50-199) 02/28/17 11:21 LDL Cholesterol Direct 121 mg/dL (50-130) 02/28/17 11:21 HDL Cholesterol 38 mg/dL (40-59) L 02/28/17 11:21 Cholesterol/HDL Ratio 4.68 % 02/28/17 11:21 Urine Opiates Screen Presumptive negative 02/28/17 11:08 Urine Methadone Screen Presumptive negative 02/28/17 11:08 Ur Barbiturates Screen Presumptive negative 02/28/17 11:08 Ur Phencyclidine Scrn Presumptive negative 02/28/17 11:08 Ur Amphetamines Screen Presumptive negative 02/28/17 11:08 U Benzodiazepines Scrn Presumptive negative 02/28/17 11:08 Urine Cocaine Screen Presumptive negative 02/28/17 11:08 U Marijuana (THC) Screen Presumptive negative 02/28/17 11:08 Drugs of Abuse Note Disclamer 02/28/17 11:08
[2017-03-05] MEDS: LOVENOX SUB-Q SCH (13:07)
[2017-03-05] MEDS: BABY ASPIRIN PO SCH (13:08)
[2017-03-05] MEDS: PEPCID PO SCH ×2 (13:08→22:47)
[2017-03-05] MEDS: COREG PO SCH ×2 (13:09→22:47)
[2017-03-05] MEDS: PROCARDIA XL PO SCH (13:09)
[2017-03-05] MEDS: HABITROL TD SCH (13:09)
[2017-03-05] MEDS: PLAVIX PO SCH (13:10)
--- NOTE | 2017-03-05 14:04 | Progress Note ---
<KARINA RICH. - Last Filed: 03/05/17 17:30> Subjective - Reason for Consult Consult date: 03/05/17 Reason for consult: Psychiatry Follow-up - Chief Complaint Chief complaint: "Patient could not verbally communicate" This is a 36-year-old AA male admitted to [facility] for a neurological abnormality. Psychiatry was consulted to see patient for depression and anxiety. Today he nodded to his name and squeezed my finger with his left hand. I asked did he feel down and sad about his current medical condition and he nodded to this question. Per his assigned RN, patient tried to feed himself earlier, but he needed some assistance. No gestures of SI/HI's or AVH's. Mental Status Exam - Vital signs Last Vital Signs Temp 98.1 F 03/05/17 08:00 Pulse 84 03/05/17 08:00 Resp 20 03/05/17 08:00 BP 116/78 03/05/17 08:00 Pulse Ox 96 03/05/17 08:00 - Exam Narrative exam: Partial MSE completed. Orientation: person Affect: flat Mood: other (Nodded to feeling "depressed") Speech: slurring Concentration: focused Motor activity: other (lying in bed) Level of consciousness: alert Interaction: cooperative Assessment and Plan Impression: MDD DO NOS. This is a 36-year-old AA male admitted to [facility] for a neurological abnormality. Psychiatry was consulted to see patient for depression and anxiety. Today he nodded to his name and squeezed my finger with his left hand. I asked did he feel down and sad about his current medical condition and he nodded to this question. Per his assigned RN, patient tried to feed himself earlier, but he needed some assistance. No gestures of SI/HI's or AVH's. Acute to subacute ischemia in the right anterior cerebral artery per MRI. DD: R/O Bipolar Recommendation/Plan: Start Lexapro 5 mg PO daily for depression. Left a voicemail for Cathy Jarad [phone] (girlfriend) to gather collateral information. <ARIANA WEST - Last Filed: 03/05/17 19:12> Mental Status Exam - Vital signs Last Vital Signs Temp 97.9 F 03/05/17 17:15 Pulse 92 H 03/05/17 17:15 Resp 18 03/05/17 17:15 BP 133/89 03/05/17 17:15 Pulse Ox 97 03/05/17 17:15 Assessment and Plan Assessment: MDD- rec severe vs Bipolar I d/o
[2017-03-05] MEDS: NACL 0.9% 1000 ML 1,000 ML IV SCH (22:56)
[2017-03-06 06:14] LABS: Anion Gap 19 mmol/L; BUN/Creatinine Ratio 20.76; Blood Urea Nitrogen 27 mg/dL (9-20); Carbon Dioxide 24 mmol/L (22-30); Chloride 103.8 mmol/L (98-107); Glucose 104 mg/dL (75-100); Potassium 4.3 mmol/L (3.6-5.0); Sodium 142 mmol/L (137-145)
[2017-03-06] MEDS: NACL 0.9% 1000 ML 1,000 ML IV SCH ×2 (06:49→14:50)
--- NOTE | 2017-03-06 08:03 | Vascular Lab Report ---
CAROTID DUPLEX STUDY: RIGHT PSVEDV CCA PROX:8323 CCA DIST:8021 ICA PROX:5522 ICA MID:4620 ICA DIST:5517 ECA: 86 VERT: 28 8 LEFT PSVEDV CCA PROX:9924 CCA DIST:6923 ICA PROX:6817 ICA MID:6125 ICA DIST:6018 ECA: 98 VERT: 42 12 REASON FOR EXAM: CVA. COMMENTS ON THE RIGHT: Doppler frequency analysis is consistent with 16 to 49 percent diameter reduction of the internal carotid artery. Minimal amount of plaque is seen. The common carotid artery is patent. The external carotid artery is patent. The vertebral artery has antegrade flow. COMMENTS ON THE LEFT: Doppler frequency analysis is consistent with 16 to 49 percent diameter reduction of the internal carotid artery. Minimal amount of plaque is seen. The common carotid artery is patent. The external carotid artery is patent. The vertebral artery has antegrade flow. IMPRESSION: Less than 50% diameter reduction in the internal carotid arteries bilaterally. Consider repeat carotid artery duplex in 12 months.
[2017-03-06] MEDS: PLAVIX PO SCH (09:57)
[2017-03-06] MEDS: LOVENOX SUB-Q SCH (09:58)
[2017-03-06] MEDS: LEXAPRO PO SCH (09:58)
[2017-03-06] MEDS: COREG PO SCH ×2 (09:59→22:00)
[2017-03-06] MEDS: HABITROL TD SCH ×2 (09:59→10:04)
[2017-03-06] MEDS: PEPCID PO SCH ×2 (09:59→21:59)
[2017-03-06] MEDS: BABY ASPIRIN PO SCH (10:00)
[2017-03-06] MEDS: PROCARDIA XL PO SCH (10:00)
--- NOTE | 2017-03-06 10:20 | Progress Note ---
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 he is not a candidate for tPA. Continue Aspirin , Plavix and Lipitor. Neurology following Acute kidney injury. Now resolved. Malignant hypertension. Blood pressure is now improved. On Procadia XL, Coreg. Was secondary to medical noncompliance. Anxiety and depression. Psychiatry consulted. Medical noncompliance. He has not been taking his antihypertensives. He has been counseled on importance of taking his medications . DVT prophylaxis, With Lovenox Disposition. He is stable to go to SNF. Awaiting bed. - Patient Problems (1) Acute ischemic stroke Current Visit: Yes Status: Acute (2) Depression Current Visit: Yes Status: Acute Qualifiers: Depression Type: D Major depression recurrence: M Active/Remission status : A Major depression episode severity: M Psychotic features: P Trimester: T (3) Hypertension Current Visit: Yes Status: Acute Qualifiers: Hypertension type: H History Interval history: Left sided weakness, Depressed Hospitalist Physical - Physical exam Narrative exam: Gen: Not in acute distress HEENT: Atraumatic Neck: supple, no JVD Lungs: Clear to auscultation bilaterally, no crackles, no wheeze Heart S1-S2 regular, no murmurs rubs or gallop, Abdomen: soft, non tender,non-distended, normal bowel sounds Ext: No edema, cyanosis or clubbing Neuro: Awake, quiet, left hemiparesis, Psych: depressed - Constitutional Vitals: Temp Pulse Resp BP Pulse Ox 98.1 F 86 20 136/85 99 03/06/17 09:26 03/06/17 09:59 03/06/17 09:26 03/06/17 09:59 03/06/17 09:26 General appearance: Present: no acute distress, well-nourished Results - Labs CBC & Chem 7: 03/05/17 04:26 03/07/17 04:35 Labs: Laboratory Last Values WBC 11.0 K/mm3 (4.5-11.0) 03/05/17 04:26 RBC 5.70 M/mm3 (3.65-5.03) H 03/05/17 04:26 Hgb 15.9 gm/dl (11.8-15.2) H 03/05/17 04:26 Hct 49.4 % (35.5-45.6) H 03/05/17 04:26 MCV 87 fl (84-94) 03/05/17 04:26 MCH 28 pg (28-32) 03/05/17 04:26 MCHC 32 % (32-34) 03/05/17 04:26 RDW 14.2 % (13.2-15.2) 03/05/17 04:26 Plt Count 253 K/mm3 (140-440) 03/05/17 04:26 Lymph % (Auto) 18.6 % (13.4-35.0) 03/05/17 04:26 [place] % (Auto) 9.4 % (0.0-7.3) H 03/05/17 04:26 Eos % (Auto) 1.1 % (0.0-4.3) 03/05/17 04:26 Baso % (Auto) 0.5 % (0.0-1.8) 03/05/17 04:26 Lymph # 2.0 K/mm3 (1.2-5.4) 03/05/17 04:26 [place] # 1.0 K/mm3 (0.0-0.8) H 03/05/17 04:26 Eos # 0.1 K/mm3 (0.0-0.4) 03/05/17 04:26 Baso # 0.1 K/mm3 (0.0-0.1) 03/05/17 04:26 Seg Neutrophils % 70.4 % (40.0-70.0) H 03/05/17 04:26 Seg Neutrophils # 7.7 K/mm3 (1.8-7.7) 03/05/17 04:26 ESR 1 mm/Hr (0-20) 02/28/17 05:25 PT 12.5 Sec. (12.2-14.9) 02/28/17 05:25 INR 0.94 (0.87-1.13) 02/28/17 05:25 APTT 33.4 Sec. (24.2-36.6) 02/28/17 05:25 Thrombin Time 17.9 Sec. (15.1-19.6) 02/28/17 05:25 Sodium 142 mmol/L (137-145) 03/06/17 04:40 Potassium 4.3 mmol/L (3.6-5.0) 03/06/17 04:40 Chloride 103.8 mmol/L (98-107) 03/06/17 04:40 Carbon Dioxide 24 mmol/L (22-30) 03/06/17 04:40 Anion Gap 19 mmol/L 03/06/17 04:40 BUN 27 mg/dL (9-20) H 03/06/17 04:40 Creatinine 1.3 mg/dL (0.8-1.5) 03/06/17 04:40 Estimated GFR > 60 ml/min 03/06/17 04:40 BUN/Creatinine Ratio 20.76 % 03/06/17 04:40 Glucose 104 mg/dL (75-100) H 03/06/17 04:40 Hemoglobin A1c 5.9 % (4-6) 02/28/17 05:25 Calcium 9.0 mg/dL (8.4-10.2) 03/06/17 04:40 Total Bilirubin 0.4 mg/dL (0.1-1.2) 02/28/17 05:25 AST 12 units/L (5-40) 02/28/17 05:25 ALT 13 units/L (7-56) 02/28/17 05:25 Alkaline Phosphatase 91 units/L (35-129) 02/28/17 05:25 Total Creatine Kinase 125 units/L (55-170) 02/28/17 05:25 CK-MB (CK-2) 1.6 ng/mL (0.0-4.0) 02/28/17 05:25 CK-MB (CK-2) Rel Index 1.2 (0-4) 02/28/17 05:25 Troponin T < 0.010 ng/mL (0.00-0.029) 02/28/17 05:25 Total Protein 6.9 g/dL (6.3-8.2) 02/28/17 05:25 Albumin 3.6 g/dL (3.9-5) L 02/28/17 05:25 Albumin/Globulin Ratio 1.1 % 02/28/17 05:25 Triglycerides 95 mg/dL (2-149) 02/28/17 11:21 Cholesterol 178 mg/dL (50-199) 02/28/17 11:21 LDL Cholesterol Direct 121 mg/dL (50-130) 02/28/17 11:21 HDL Cholesterol 38 mg/dL (40-59) L 02/28/17 11:21 Cholesterol/HDL Ratio 4.68 % 02/28/17 11:21 Urine Opiates Screen Presumptive negative 02/28/17 11:08 Urine Methadone Screen Presumptive negative 02/28/17 11:08 Ur Barbiturates Screen Presumptive negative 02/28/17 11:08 Ur Phencyclidine Scrn Presumptive negative 02/28/17 11:08 Ur Amphetamines Screen Presumptive negative 02/28/17 11:08 U Benzodiazepines Scrn Presumptive negative 02/28/17 11:08 Urine Cocaine Screen Presumptive negative 02/28/17 11:08 U Marijuana (THC) Screen Presumptive negative 02/28/17 11:08 Drugs of Abuse Note Disclamer 02/28/17 11:08
--- NOTE | 2017-03-06 10:20 | Discharge Summary ---
Providers - Providers Date of Admission: 02/28/17 06:52 Date of discharge: 03/06/17 Attending physician: JODY TREVIZO 02/28/17 11:04 Consult to Physician [CONS] Routine Consulting Provider: YARIEL NUR Reason For Exam: CVA/recurrent CVA with Lt weakness Place consult to:: zak Notified:: yes Was contact made?: Yes If yes, spoke with:: maximus Time called:: 14:45 02/28/17 11:06 Occupational Therapy Evaluate and Treat [CONS] Routine Comment: Reason For Exam: Stroke protocol Physical Therapy Evaluation and Treat [CONS] Routine Comment: CVA Reason For Exam: CVA/stroke protocol 03/01/17 07:44 Consult Acute Rehabilitation [CONS] Routine Consulting Provider: CONNER DAVIDSON Reason For Exam: iru eval/cva 03/02/17 17:12 Consult to Physician [CONS] Routine Consulting Provider: ELI VICTOR Reason For Exam: recurrent CVA/rule out hypercoagulable state Place consult to:: Dr. Victor Notified:: Marci SANCHEZ Phone number called:: Was contact made?: Yes If yes, spoke with:: Kendra-xu service Time called:: 08:20 03/03/17 10:45 psychiatry consult [Consult to Mental Health] [CONS] Routine Reason For Exam: depression Place consult to:: Mental Health Notified:: Marci SANCHEZ Phone number called:: Ext [phone] Was contact made?: Yes If yes, spoke with:: Barbara-Mental Health Time called:: 15:51 Primary care physician: BENEFITS COUNSELOR Hospitalization Condition: Fair Disposition: [place] SNF W [facility] CERT - Discharge Diagnoses (1) Acute ischemic stroke Status: Acute (2) Depression Status: Acute Qualifiers: Depression Type: D Major depression recurrence: M Active/Remission status : A Major depression episode severity: M Psychotic features: P Trimester: T (3) Hypertension Status: Acute Qualifiers: Hypertension type: H Core Measure Documentation - Palliative Care Palliative Care/ Comfort Measures: Not Applicable - Core Measures Any of the following diagnoses?: stroke - Stroke Discharge Requirements Statin for LDL = or >70 mg/dl on DC: Yes Anticoag for atrial fib/atrial flutter: Not Applicable Antithrombotic for ischemic stroke: Yes Exam - Constitutional Vitals: Temp Pulse Resp BP Pulse Ox 98.1 F 86 20 136/85 99 03/06/17 09:26 03/06/17 09:59 03/06/17 09:26 03/06/17 09:59 03/06/17 09:26 Plan Activity: advance as tolerated Diet: low fat, low cholesterol, low salt Additional Instructions: 1. Follow up with Physician in SNF in 3-5 days Follow up with: PRIMARY CARE,MD [Primary Care Provider] - 3-5 Days Prescriptions: ALPRAZolam [Xanax TAB] 0.25 mg PO Q8H PRN #10 tablet PRN Reason: Anxiety AtorvaSTATin [Lipitor] 80 mg PO QHS #60 tablet Clopidogrel [Plavix] 75 mg PO QDAY #30 tablet Escitalopram [Lexapro] 5 mg PO QDAY #30 tablet Famotidine [Pepcid] 20 mg PO BID #60 tablet Nicotine [Habitrol] 14 mg TD QDAY #30 patch
--- NOTE | 2017-03-06 19:37 | Progress Note ---
Subjective - Reason for Consult Consult date: 03/06/17 Reason for consult: psychiatric follow up - Chief Complaint Chief complaint: "Patient could not verbally communicate" This is a 36-year-old AA male admitted to [facility] for a neurological abnormality. Psychiatry was consulted to see patient for depression and anxiety.He stated "I' m going to lose my mind in here." He reports having nothing to do and being depressed about his situation. He needs help feeding himself and is wearing a diaper. He answered questions appropriately, although slow to respond. He states he thinks of the answer quickly but is unable to express it quickly. He is alert and oriented x 4. He is able to complete 3 word recall x2. No SI/HI's or AVH's. Primary mental health symptoms are depression. Irritability is present related to his current situation. Mental Status Exam - Vital signs Last Vital Signs Temp 98.3 F 03/06/17 17:34 Pulse 93 H 03/06/17 17:34 Resp 18 03/06/17 17:34 BP 160/94 03/06/17 17:34 Pulse Ox 95 03/06/17 17:34 - Exam Orientation: time, place, person Affect: depressed Mood: congruent with affect Thought content: other (No SI, no HI) Thought Process: Intact (logical/linear) Perceptions: none Speech: slow (expressive aphasia) Concentration: focused Motor activity: lethargic (affected by CVA, left sided paralysis) Level of consciousness: alert Memory: Intact Sleep Symptoms: None Interaction: cooperative Assessment and Plan Impression: MDD DO NOS. This is a 36-year-old AA male admitted to [facility] for a neurological abnormality. Psychiatry was consulted to see patient for depression and anxiety. Expressive aphasia is evident. He needs time to be able to converse, but his thought process is linear. No gestures of SI/HI's or AVH' s. Acute to subacute ischemia in the right anterior cerebral artery per MRI. DD : R/O Bipolar Recommendation/Plan: Start Lexapro 5 mg PO daily for depression. A voicemail was left the previous day for Cathy Abraham [phone] (girlfriend) to gather collateral information. Recommend cognitive stimulation
[2017-03-07] MEDS: NACL 0.9% 1000 ML 1,000 ML IV SCH ×2 (04:48→11:20)
[2017-03-07] MEDS: APRESOLINE IV PRN (06:18)
[2017-03-07 06:57] LABS: Anion Gap 18 mmol/L; BUN/Creatinine Ratio 17.77; Blood Urea Nitrogen 16 mg/dL (9-20); Calcium 8.9 mg/dL (8.4-10.2); Carbon Dioxide 22 mmol/L (22-30); Chloride 105.2 mmol/L (98-107); Glucose 96 mg/dL (75-100); Potassium 4.2 mmol/L (3.6-5.0); Sodium 141 mmol/L (137-145)
--- NOTE | 2017-03-07 10:54 | Progress Note ---
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 he is not a candidate for tPA. Continue Aspirin , Plavix and Lipitor. He is likely stable and is awaiting discharge to subacute rehabilitation facility . Acute kidney injury. Now resolved. Malignant hypertension. Blood pressure is now improved. On Procadia XL, Coreg. Was secondary to medical noncompliance. Anxiety and depression. Psychiatry consulted. lexapro Medical noncompliance. He has not been taking his antihypertensives. He has been counseled on importance of taking his medications . DVT prophylaxis, With Lovenox Disposition. He is stable to go to SNF. Awaiting bed. History Interval history: Still left sided weakness, Depressed Hospitalist Physical - Physical exam Narrative exam: Gen: Not in acute distress HEENT: Atraumatic Neck: supple, no JVD Lungs: Clear to auscultation bilaterally, no crackles, no wheeze Heart S1-S2 regular, no murmurs rubs or gallop, Abdomen: soft, non tender,non-distended, normal bowel sounds Ext: No edema, cyanosis or clubbing Neuro: Awake, quiet, left hemiparesis, Psych: depressed - Constitutional Vitals: Temp Pulse Resp BP Pulse Ox 97.6 F 95 H 20 179/101 95 03/07/17 07:54 03/07/17 07:54 03/07/17 07:54 03/07/17 07:54 03/07/17 07:54 General appearance: Present: no acute distress, well-nourished Results - Labs CBC & Chem 7: 03/05/17 04:26 03/07/17 04:35 Labs: Laboratory Last Values WBC 11.0 K/mm3 (4.5-11.0) 03/05/17 04:26 RBC 5.70 M/mm3 (3.65-5.03) H 03/05/17 04:26 Hgb 15.9 gm/dl (11.8-15.2) H 03/05/17 04:26 Hct 49.4 % (35.5-45.6) H 03/05/17 04:26 MCV 87 fl (84-94) 03/05/17 04:26 MCH 28 pg (28-32) 03/05/17 04:26 MCHC 32 % (32-34) 03/05/17 04:26 RDW 14.2 % (13.2-15.2) 03/05/17 04:26 Plt Count 253 K/mm3 (140-440) 03/05/17 04:26 Lymph % (Auto) 18.6 % (13.4-35.0) 03/05/17 04:26 [place] % (Auto) 9.4 % (0.0-7.3) H 03/05/17 04:26 Eos % (Auto) 1.1 % (0.0-4.3) 03/05/17 04:26 Baso % (Auto) 0.5 % (0.0-1.8) 03/05/17 04:26 Lymph # 2.0 K/mm3 (1.2-5.4) 03/05/17 04:26 [place] # 1.0 K/mm3 (0.0-0.8) H 03/05/17 04:26 Eos # 0.1 K/mm3 (0.0-0.4) 03/05/17 04:26 Baso # 0.1 K/mm3 (0.0-0.1) 03/05/17 04:26 Seg Neutrophils % 70.4 % (40.0-70.0) H 03/05/17 04:26 Seg Neutrophils # 7.7 K/mm3 (1.8-7.7) 03/05/17 04:26 ESR 1 mm/Hr (0-20) 02/28/17 05:25 PT 12.5 Sec. (12.2-14.9) 02/28/17 05:25 INR 0.94 (0.87-1.13) 02/28/17 05:25 APTT 33.4 Sec. (24.2-36.6) 02/28/17 05:25 Thrombin Time 17.9 Sec. (15.1-19.6) 02/28/17 05:25 Sodium 141 mmol/L (137-145) 03/07/17 04:35 Potassium 4.2 mmol/L (3.6-5.0) 03/07/17 04:35 Chloride 105.2 mmol/L (98-107) 03/07/17 04:35 Carbon Dioxide 22 mmol/L (22-30) 03/07/17 04:35 Anion Gap 18 mmol/L 03/07/17 04:35 BUN 16 mg/dL (9-20) 03/07/17 04:35 Creatinine 0.9 mg/dL (0.8-1.5) 03/07/17 04:35 Estimated GFR > 60 ml/min 03/07/17 04:35 BUN/Creatinine Ratio 17.77 % 03/07/17 04:35 Glucose 96 mg/dL (75-100) 03/07/17 04:35 Hemoglobin A1c 5.9 % (4-6) 02/28/17 05:25 Calcium 8.9 mg/dL (8.4-10.2) 03/07/17 04:35 Total Bilirubin 0.4 mg/dL (0.1-1.2) 02/28/17 05:25 AST 12 units/L (5-40) 02/28/17 05:25 ALT 13 units/L (7-56) 02/28/17 05:25 Alkaline Phosphatase 91 units/L (35-129) 02/28/17 05:25 Total Creatine Kinase 125 units/L (55-170) 02/28/17 05:25 CK-MB (CK-2) 1.6 ng/mL (0.0-4.0) 02/28/17 05:25 CK-MB (CK-2) Rel Index 1.2 (0-4) 02/28/17 05:25 Troponin T < 0.010 ng/mL (0.00-0.029) 02/28/17 05:25 Total Protein 6.9 g/dL (6.3-8.2) 02/28/17 05:25 Albumin 3.6 g/dL (3.9-5) L 02/28/17 05:25 Albumin/Globulin Ratio 1.1 % 02/28/17 05:25 Triglycerides 95 mg/dL (2-149) 02/28/17 11:21 Cholesterol 178 mg/dL (50-199) 02/28/17 11:21 LDL Cholesterol Direct 121 mg/dL (50-130) 02/28/17 11:21 HDL Cholesterol 38 mg/dL (40-59) L 02/28/17 11:21 Cholesterol/HDL Ratio 4.68 % 02/28/17 11:21 Urine Opiates Screen Presumptive negative 02/28/17 11:08 Urine Methadone Screen Presumptive negative 02/28/17 11:08 Ur Barbiturates Screen Presumptive negative 02/28/17 11:08 Ur Phencyclidine Scrn Presumptive negative 02/28/17 11:08 Ur Amphetamines Screen Presumptive negative 02/28/17 11:08 U Benzodiazepines Scrn Presumptive negative 02/28/17 11:08 Urine Cocaine Screen Presumptive negative 02/28/17 11:08 U Marijuana (THC) Screen Presumptive negative 02/28/17 11:08 Drugs of Abuse Note Disclamer 02/28/17 11:08
[2017-03-07] MEDS: LEXAPRO PO SCH (11:15)
[2017-03-07] MEDS: LOVENOX SUB-Q SCH (11:16)
[2017-03-07] MEDS: PROCARDIA XL PO SCH (11:16)
[2017-03-07] MEDS: COREG PO SCH ×2 (11:16→22:25)
[2017-03-07] MEDS: PLAVIX PO SCH (11:17)
[2017-03-07] MEDS: PEPCID PO SCH ×2 (11:17→22:24)
[2017-03-07] MEDS: HABITROL TD SCH (11:17)
[2017-03-07] MEDS: BABY ASPIRIN PO SCH (11:17)
--- NOTE | 2017-03-07 13:57 | Progress Note ---
Subjective - Reason for Consult Consult date: 03/07/17 Reason for consult: Psychiatry Follow-up - Chief Complaint Chief complaint: "I'm okay today" This is a 36-year-old AA male admitted to [facility] for a neurological abnormality. Psychiatry was consulted to see patient for depression and anxiety. Today patient is calm, cooperative, A/O x4 with a linear thought process. He was able to tell me his , the president of the [place], and recall 3 numbers (5, 15, 7) given to him within 5 mins. Patient would concentrate to answer questions with a delay, expressive aphasia is evident. He is concerned that he will not be able to take care himself once discharged. Patient states that he feels sad and down about his current medical condition. He acknowledged no sleep issues and his appetite is "okay" at this time. Per his assigned RN, patient has been very appropriate. He denies SI/HI's or AVH's now or in the past. Mental Status Exam - Vital signs Last Vital Signs Temp 98.3 F 03/07/17 12:50 Pulse 91 H 03/07/17 12:50 Resp 20 03/07/17 12:50 BP 143/95 03/07/17 12:50 Pulse Ox 97 03/07/17 12:50 - Exam Orientation: time, place, person Affect: flat Mood: congruent with affect Thought content: other (Intact) Thought Process: Intact (Linear) Perceptions: none Speech: other (Expressive Aphasia) Concentration: focused Motor activity: other (Left sided weakness) Level of consciousness: alert Memory: Intact Sleep Symptoms: None Interaction: cooperative Mini mental status exam(if necessary): 24-30 Assessment and Plan Impression: This is a 36-year-old AA male admitted to [facility] for a neurological abnormality. Psychiatry was consulted to see patient for depression and anxiety. Today patient is calm, cooperative, A/O x4 with a linear thought process. He was able to tell me his , the president of the [place], and recall 3 numbers (5, 15, 7) given to him within 5 mins. He struggles to answer questions , expressive aphasia is evident. No gestures of SI/HI's or AVH's. Acute to subacute ischemia in the right anterior cerebral artery per MRI. Recommendation/Plan: Continue Lexapro 5 mg PO daily for depression. Continue to reorient patient to his surrounding if indicated. Keep him aware of all treatments pending.
[2017-03-08] MEDS: BABY ASPIRIN PO SCH (09:41)
[2017-03-08] MEDS: PLAVIX PO SCH (09:41)
[2017-03-08] MEDS: LEXAPRO PO SCH (09:41)
[2017-03-08] MEDS: HABITROL TD SCH (09:41)
[2017-03-08] MEDS: PEPCID PO SCH ×2 (09:42→22:15)
[2017-03-08] MEDS: LOVENOX SUB-Q SCH (09:42)
[2017-03-08] MEDS: PROCARDIA XL PO SCH (09:42)
[2017-03-08] MEDS: COREG PO SCH ×2 (09:42→22:16)
--- NOTE | 2017-03-08 10:54 | Progress Note ---
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 he is not a candidate for tPA. Continue Aspirin , Plavix and Lipitor. He is stable and is awaiting discharge to subacute rehabilitation facility . Acute kidney injury. Now resolved. Malignant hypertension. Blood pressure is now improved. On Procadia XL, Coreg. Was secondary to medical noncompliance. Add Hydralazine. Anxiety and depression. Psychiatry consulted. lexapro Medical noncompliance. He has not been taking his antihypertensives. He has been counseled on importance of taking his medications . DVT prophylaxis, With Lovenox Disposition. He is stable to go to SNF. Awaiting bed. History Interval history: Still left sided weakness, Depressed Hospitalist Physical - Physical exam Narrative exam: Gen: Not in acute distress HEENT: Atraumatic Neck: supple, no JVD Lungs: Clear to auscultation bilaterally, no crackles, no wheeze Heart S1-S2 regular, no murmurs rubs or gallop, Abdomen: soft, non tender,non-distended, normal bowel sounds Ext: No edema, cyanosis or clubbing Neuro: Awake, quiet, left hemiparesis, Psych: depressed - Constitutional Vitals: Temp Pulse Resp BP Pulse Ox 97.5 F L 84 20 142/100 97 03/08/17 08:00 03/08/17 09:42 03/08/17 08:00 03/08/17 09:42 03/08/17 08:00 General appearance: Present: no acute distress, well-nourished Results - Labs CBC & Chem 7: 03/05/17 04:26 03/07/17 04:35 Labs: Laboratory Last Values WBC 11.0 K/mm3 (4.5-11.0) 03/05/17 04:26 RBC 5.70 M/mm3 (3.65-5.03) H 03/05/17 04:26 Hgb 15.9 gm/dl (11.8-15.2) H 03/05/17 04:26 Hct 49.4 % (35.5-45.6) H 03/05/17 04:26 MCV 87 fl (84-94) 03/05/17 04:26 MCH 28 pg (28-32) 03/05/17 04:26 MCHC 32 % (32-34) 03/05/17 04:26 RDW 14.2 % (13.2-15.2) 03/05/17 04:26 Plt Count 253 K/mm3 (140-440) 03/05/17 04:26 Lymph % (Auto) 18.6 % (13.4-35.0) 03/05/17 04:26 [place] % (Auto) 9.4 % (0.0-7.3) H 03/05/17 04:26 Eos % (Auto) 1.1 % (0.0-4.3) 03/05/17 04:26 Baso % (Auto) 0.5 % (0.0-1.8) 03/05/17 04:26 Lymph # 2.0 K/mm3 (1.2-5.4) 03/05/17 04:26 [place] # 1.0 K/mm3 (0.0-0.8) H 03/05/17 04:26 Eos # 0.1 K/mm3 (0.0-0.4) 03/05/17 04:26 Baso # 0.1 K/mm3 (0.0-0.1) 03/05/17 04:26 Seg Neutrophils % 70.4 % (40.0-70.0) H 03/05/17 04:26 Seg Neutrophils # 7.7 K/mm3 (1.8-7.7) 03/05/17 04:26 ESR 1 mm/Hr (0-20) 02/28/17 05:25 PT 12.5 Sec. (12.2-14.9) 02/28/17 05:25 INR 0.94 (0.87-1.13) 02/28/17 05:25 APTT 33.4 Sec. (24.2-36.6) 02/28/17 05:25 Thrombin Time 17.9 Sec. (15.1-19.6) 02/28/17 05:25 Sodium 141 mmol/L (137-145) 03/07/17 04:35 Potassium 4.2 mmol/L (3.6-5.0) 03/07/17 04:35 Chloride 105.2 mmol/L (98-107) 03/07/17 04:35 Carbon Dioxide 22 mmol/L (22-30) 03/07/17 04:35 Anion Gap 18 mmol/L 03/07/17 04:35 BUN 16 mg/dL (9-20) 03/07/17 04:35 Creatinine 0.9 mg/dL (0.8-1.5) 03/07/17 04:35 Estimated GFR > 60 ml/min 03/07/17 04:35 BUN/Creatinine Ratio 17.77 % 03/07/17 04:35 Glucose 96 mg/dL (75-100) 03/07/17 04:35 Hemoglobin A1c 5.9 % (4-6) 02/28/17 05:25 Calcium 8.9 mg/dL (8.4-10.2) 03/07/17 04:35 Total Bilirubin 0.4 mg/dL (0.1-1.2) 02/28/17 05:25 AST 12 units/L (5-40) 02/28/17 05:25 ALT 13 units/L (7-56) 02/28/17 05:25 Alkaline Phosphatase 91 units/L (35-129) 02/28/17 05:25 Total Creatine Kinase 125 units/L (55-170) 02/28/17 05:25 CK-MB (CK-2) 1.6 ng/mL (0.0-4.0) 02/28/17 05:25 CK-MB (CK-2) Rel Index 1.2 (0-4) 02/28/17 05:25 Troponin T < 0.010 ng/mL (0.00-0.029) 02/28/17 05:25 Total Protein 6.9 g/dL (6.3-8.2) 02/28/17 05:25 Albumin 3.6 g/dL (3.9-5) L 02/28/17 05:25 Albumin/Globulin Ratio 1.1 % 02/28/17 05:25 Triglycerides 95 mg/dL (2-149) 02/28/17 11:21 Cholesterol 178 mg/dL (50-199) 02/28/17 11:21 LDL Cholesterol Direct 121 mg/dL (50-130) 02/28/17 11:21 HDL Cholesterol 38 mg/dL (40-59) L 02/28/17 11:21 Cholesterol/HDL Ratio 4.68 % 02/28/17 11:21 Urine Opiates Screen Presumptive negative 02/28/17 11:08 Urine Methadone Screen Presumptive negative 02/28/17 11:08 Ur Barbiturates Screen Presumptive negative 02/28/17 11:08 Ur Phencyclidine Scrn Presumptive negative 02/28/17 11:08 Ur Amphetamines Screen Presumptive negative 02/28/17 11:08 U Benzodiazepines Scrn Presumptive negative 02/28/17 11:08 Urine Cocaine Screen Presumptive negative 02/28/17 11:08 U Marijuana (THC) Screen Presumptive negative 02/28/17 11:08 Drugs of Abuse Note Disclamer 02/28/17 11:08
--- NOTE | 2017-03-08 16:07 | Progress Note ---
Subjective - Reason for Consult Consult date: 03/08/17 Reason for consult: psychiatric follow up - Chief Complaint Chief complaint: "I'm okay today" This is a 36-year-old AA male admitted to [facility] for a neurological abnormality. Psychiatry was consulted to see patient for depression and anxiety. Today patient is calm, cooperative, A/O x4 with a linear thought process. He readily answer questions and the expressive aphasia appears to have improved. He reports depression has improved. His son was at bedside helping his father with exercising his legs. He acknowledged no sleep issues and his appetite is "okay" at this time. He denies SI/HI's or AVH's now or in the past. Mental Status Exam - Vital signs Last Vital Signs Temp 97.5 F L 03/08/17 08:00 Pulse 84 03/08/17 09:42 Resp 20 03/08/17 08:00 BP 142/100 03/08/17 09:42 Pulse Ox 97 03/08/17 08:00 - Exam Orientation: time, place, person Affect: depressed (less) Mood: appropriate Thought content: other (no SI, no HI) Thought Process: Intact Perceptions: none Speech: slow (much improved) Concentration: focused Motor activity: other (left sided paralysis from CVA) Level of consciousness: alert Memory: Intact Sleep Symptoms: None (thank you) Interaction: cooperative, pleasant Assessment and Plan Impression: MDD DO NOS. This is a 36-year-old AA male admitted to [facility] for a neurological abnormality. Psychiatry was consulted to see patient for depression and anxiety. Expressive aphasia has improved. His thought process is linear. No gestures of SI/HI's or AVH's. Acute to subacute ischemia in the right anterior cerebral artery per MRI. R/O Bipolar Recommendation/Plan: Start Lexapro 5 mg PO daily for depression. Recommend cognitive stimulation, company at bedside is helpful Patient family are concerned that his legs are getting stiff and he is not wearing any hose on his legs- nursing staff informed of patient's concerns
[2017-03-08] MEDS: APRESOLINE PO SCH ×2 (18:48→22:16)
[2017-03-08] MEDS: APRESOLINE IV PRN (20:35)
[2017-03-09] MEDS: APRESOLINE PO SCH ×3 (05:35→21:37)
--- NOTE | 2017-03-09 07:57 | Progress Note ---
Subjective - Reason for Consult Consult date: 03/09/17 Reason for consult: Psychiatry Follow-up - Chief Complaint Chief complaint: "I'm feeling better" This is a 36-year-old AA male admitted to [facility] for a neurological abnormality. Psychiatry was consulted to see patient for depression and anxiety. Today patient is calm, cooperative, A/O x4 with a linear thought process. Today upon arrival to his room, he was sitting up and watching TV. His aphasia has gotten better since my last assessment 03/07/17. He could tell me his , the [place] President and, recall 3 numbers (3,8,19) after 5 mins. He rates his depression 0 /10 with 10 being the worse and states that his appetite is "good." He denies SI /HI's and AVH's. Mental Status Exam - Vital signs Last Vital Signs Temp 98.8 F 03/09/17 06:14 Pulse 83 03/09/17 06:14 Resp 20 03/09/17 06:14 BP 145/88 03/09/17 06:14 Pulse Ox 98 03/09/17 06:14 - Exam Narrative exam: MSE Appearance: good eye contact, cooperative Behavior: right sided weakness Speech: expressive aphasia, but getting better, low and slow Mood: "feel good" Affect: euthymic, mood congruent Thought Process: linear, goal oriented Thought Content: denies SI/Hi's and AVH's Motor Activity: sitting up in bed Cognition: A?O x4, focused Insight: fair Judgment: fair Assessment and Plan Impression: Mood DO NOS. This is a 36-year-old AA male admitted to [facility] for a neurological abnormality. Psychiatry was consulted to see patient for depression and anxiety. Today patient is calm, cooperative, A/O x4 with a linear thought process. Today upon arrival to his room, he was sitting up and watching TV. His aphasia has gotten better since my last assessment 03/07/17. He could tell me his , the [place] president and, recall 3 numbers (3,8,19) after 5 mins. Denies SI/HI's and AVH's. Recommendation/Plan: Continue Lexapro 5 mg PO daily for depression. Continue ROM exercises with patient. Keep him aware of all treatments pending.
[2017-03-09] MEDS: HABITROL TD SCH (09:55)
[2017-03-09] MEDS: LOVENOX SUB-Q SCH (09:55)
[2017-03-09] MEDS: PEPCID PO SCH ×2 (09:56→21:37)
[2017-03-09] MEDS: LEXAPRO PO SCH (09:56)
[2017-03-09] MEDS: PLAVIX PO SCH (09:56)
[2017-03-09] MEDS: COREG PO SCH ×2 (09:57→21:37)
[2017-03-09] MEDS: PROCARDIA XL PO SCH (09:57)
[2017-03-09] MEDS: BABY ASPIRIN PO SCH (09:57)
[2017-03-10] MEDS: APRESOLINE PO SCH ×3 (05:51→22:20)
[2017-03-10] MEDS: PLAVIX PO SCH (10:07)
[2017-03-10] MEDS: COREG PO SCH ×2 (10:08→22:21)
[2017-03-10] MEDS: LOVENOX SUB-Q SCH (10:08)
[2017-03-10] MEDS: LEXAPRO PO SCH (10:08)
[2017-03-10] MEDS: PROCARDIA XL PO SCH (10:09)
[2017-03-10] MEDS: HABITROL TD SCH (10:09)
[2017-03-10] MEDS: BABY ASPIRIN PO SCH (10:09)
[2017-03-10] MEDS: PEPCID PO SCH ×2 (10:09→22:21)
--- NOTE | 2017-03-10 10:18 | Progress Note ---
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 He was not a candidate for tPA. Continue Aspirin , Plavix and Lipitor. He is stable and is awaiting discharge to subacute rehabilitation facility . Acute kidney injury. Now resolved. Malignant hypertension. Blood pressure is now improved. On Procadia XL, Coreg. Was secondary to medical noncompliance. Add Hydralazine. Anxiety and depression. Psychiatry consulted. lexapro Medical noncompliance. He has not been taking his antihypertensives. He has been counseled on importance of taking his medications . DVT prophylaxis, With Lovenox Disposition. He is stable to go to SNF. Awaiting bed. History Interval history: Still left sided weakness, Depressed, Poor appetite Hospitalist Physical - Physical exam Narrative exam: Gen: Not in acute distress HEENT: Atraumatic Neck: supple, no JVD Lungs: Clear to auscultation bilaterally, no crackles, no wheeze Heart S1-S2 regular, no murmurs rubs or gallop, Abdomen: soft, non tender,non-distended, normal bowel sounds Ext: No edema, cyanosis or clubbing Neuro: Awake, quiet, left hemiparesis, Psych: depressed - Constitutional Vitals: Temp Pulse Resp BP Pulse Ox 98.5 F 82 20 130/76 97 03/10/17 07:32 03/10/17 10:08 03/10/17 07:32 03/10/17 10:08 03/10/17 07:32 General appearance: Present: no acute distress, well-nourished Results - Labs CBC & Chem 7: 03/05/17 04:26 03/07/17 04:35 Labs: Laboratory Last Values WBC 11.0 K/mm3 (4.5-11.0) 03/05/17 04:26 RBC 5.70 M/mm3 (3.65-5.03) H 03/05/17 04:26 Hgb 15.9 gm/dl (11.8-15.2) H 03/05/17 04:26 Hct 49.4 % (35.5-45.6) H 03/05/17 04:26 MCV 87 fl (84-94) 03/05/17 04:26 MCH 28 pg (28-32) 03/05/17 04:26 MCHC 32 % (32-34) 03/05/17 04:26 RDW 14.2 % (13.2-15.2) 03/05/17 04:26 Plt Count 253 K/mm3 (140-440) 03/05/17 04:26 Lymph % (Auto) 18.6 % (13.4-35.0) 03/05/17 04:26 [place] % (Auto) 9.4 % (0.0-7.3) H 03/05/17 04:26 Eos % (Auto) 1.1 % (0.0-4.3) 03/05/17 04:26 Baso % (Auto) 0.5 % (0.0-1.8) 03/05/17 04:26 Lymph # 2.0 K/mm3 (1.2-5.4) 03/05/17 04:26 [place] # 1.0 K/mm3 (0.0-0.8) H 03/05/17 04:26 Eos # 0.1 K/mm3 (0.0-0.4) 03/05/17 04:26 Baso # 0.1 K/mm3 (0.0-0.1) 03/05/17 04:26 Seg Neutrophils % 70.4 % (40.0-70.0) H 03/05/17 04:26 Seg Neutrophils # 7.7 K/mm3 (1.8-7.7) 03/05/17 04:26 ESR 1 mm/Hr (0-20) 02/28/17 05:25 PT 12.5 Sec. (12.2-14.9) 02/28/17 05:25 INR 0.94 (0.87-1.13) 02/28/17 05:25 APTT 33.4 Sec. (24.2-36.6) 02/28/17 05:25 Thrombin Time 17.9 Sec. (15.1-19.6) 02/28/17 05:25 Sodium 141 mmol/L (137-145) 03/07/17 04:35 Potassium 4.2 mmol/L (3.6-5.0) 03/07/17 04:35 Chloride 105.2 mmol/L (98-107) 03/07/17 04:35 Carbon Dioxide 22 mmol/L (22-30) 03/07/17 04:35 Anion Gap 18 mmol/L 03/07/17 04:35 BUN 16 mg/dL (9-20) 03/07/17 04:35 Creatinine 0.9 mg/dL (0.8-1.5) 03/07/17 04:35 Estimated GFR > 60 ml/min 03/07/17 04:35 BUN/Creatinine Ratio 17.77 % 03/07/17 04:35 Glucose 96 mg/dL (75-100) 03/07/17 04:35 Hemoglobin A1c 5.9 % (4-6) 02/28/17 05:25 Calcium 8.9 mg/dL (8.4-10.2) 03/07/17 04:35 Total Bilirubin 0.4 mg/dL (0.1-1.2) 02/28/17 05:25 AST 12 units/L (5-40) 02/28/17 05:25 ALT 13 units/L (7-56) 02/28/17 05:25 Alkaline Phosphatase 91 units/L (35-129) 02/28/17 05:25 Total Creatine Kinase 125 units/L (55-170) 02/28/17 05:25 CK-MB (CK-2) 1.6 ng/mL (0.0-4.0) 02/28/17 05:25 CK-MB (CK-2) Rel Index 1.2 (0-4) 02/28/17 05:25 Troponin T < 0.010 ng/mL (0.00-0.029) 02/28/17 05:25 Total Protein 6.9 g/dL (6.3-8.2) 02/28/17 05:25 Albumin 3.6 g/dL (3.9-5) L 02/28/17 05:25 Albumin/Globulin Ratio 1.1 % 02/28/17 05:25 Triglycerides 95 mg/dL (2-149) 02/28/17 11:21 Cholesterol 178 mg/dL (50-199) 02/28/17 11:21 LDL Cholesterol Direct 121 mg/dL (50-130) 02/28/17 11:21 HDL Cholesterol 38 mg/dL (40-59) L 02/28/17 11:21 Cholesterol/HDL Ratio 4.68 % 02/28/17 11:21 Urine Opiates Screen Presumptive negative 02/28/17 11:08 Urine Methadone Screen Presumptive negative 02/28/17 11:08 Ur Barbiturates Screen Presumptive negative 02/28/17 11:08 Ur Phencyclidine Scrn Presumptive negative 02/28/17 11:08 Ur Amphetamines Screen Presumptive negative 02/28/17 11:08 U Benzodiazepines Scrn Presumptive negative 02/28/17 11:08 Urine Cocaine Screen Presumptive negative 02/28/17 11:08 U Marijuana (THC) Screen Presumptive negative 02/28/17 11:08 Drugs of Abuse Note Disclamer 02/28/17 11:08
--- NOTE | 2017-03-10 13:10 | Progress Note ---
Subjective - Reason for Consult Consult date: 03/10/17 Reason for consult: psychiatric follow up - Chief Complaint Chief complaint: "I'm feeling better" This is a 36-year-old AA male admitted to [facility] for a neurological abnormality. Psychiatry was consulted to see patient for depression and anxiety. Today patient is calm, cooperative, A/O x4 with a linear thought process. Today upon arrival to his room, he was lying in the bed talking to his son at bedside. Aphasia is improved. He reports feeling hopeful. He denies depression today. He declines to take lexapro stating he does not want an antidepressant. He denies SI/HI's and AVH's. Mental Status Exam - Vital signs Last Vital Signs Temp 98.5 F 03/10/17 07:32 Pulse 82 03/10/17 10:08 Resp 20 03/10/17 07:32 BP 130/76 03/10/17 10:08 Pulse Ox 97 03/10/17 07:32 - Exam Orientation: time, place, person Affect: normal Mood: appropriate Thought Process: Intact Perceptions: none Speech: slow Concentration: focused Motor activity: other (left side affected by CVA) Level of consciousness: alert Memory: Intact Sleep Symptoms: None Interaction: cooperative Assessment and Plan Impression: MDD DO NOS. This is a 36-year-old AA male admitted to [facility] for a neurological abnormality. Psychiatry was consulted to see patient for depression and anxiety. Expressive aphasia has improved. His thought process is linear. No gestures of SI/HI's or AVH's. Acute to subacute ischemia in the right anterior cerebral artery per MRI. R/O Bipolar Recommendation/Plan: Recommend Lexapro 5 mg PO daily for depression. follow up to monitor mood/depression
[2017-03-10] MEDS: MIRALAX 3350 PO PRN (15:58)
[2017-03-11] MEDS: MIRALAX 3350 PO PRN ×2 (06:18→19:16)
[2017-03-11] MEDS: APRESOLINE PO SCH ×3 (06:19→21:30)
--- NOTE | 2017-03-11 08:24 | Progress Note ---
Subjective - Reason for Consult Consult date: 03/11/17 Reason for consult: Psychiatry Follow-up - Chief Complaint Chief complaint: "I am ready to be discharged" This is a 36-year-old AA male admitted to [facility] for a neurological abnormality. Psychiatry was consulted to see patient for depression and anxiety. Today patient is calm, cooperative, A/O x4 with a linear thought process. Patient admits to being anxious, because he is ready to go home (discharged). I explained to him the process and his possible treatment plan moving forward. He stated, "I understand." His expressive aphasia is improving. He was able to squeeze my hand with his left hand (mild echo vasc tech). He denies symptoms of depression. He denies any side effects of the Lexapro. He denies SI/HI's and AVH 's. Mental Status Exam - Vital signs Last Vital Signs Temp 98 F 03/11/17 05:00 Pulse 80 03/11/17 06:19 Resp 19 03/11/17 05:00 BP 155/85 03/11/17 06:19 Pulse Ox 96 03/11/17 05:00 - Exam Narrative exam: MSE: Appearance: good eye contact, cooperative Behavior: psychomotor retardation (left side) Speech: expressive aphasia, but getting better, rate low and slow Mood: "Not bad today" Affect: euthymic, mood congruent Thought Process: linear, goal directed Thought Content: denies SI/Hi's and AVH's Motor Activity: sitting up in bed, left sided weakness (mild hand echo vasc tech improving) Cognition: A/O x4, focused Insight: fair Judgment: fair Assessment and Plan Impression: MDD DO NOS. This is a 36-year-old AA male admitted to [facility] for a neurological abnormality. Psychiatry was consulted to see patient for depression and anxiety. Expressive aphasia has improved. Today patient is calm and cooperative with a linear thought process. No gestures of SI/HI's or AVH's. Mild hand echo vasc tech with his left hand (improving). Acute to subacute ischemia in the right anterior cerebral artery per MRI. Recommendation/Plan: Continue Lexapro 5 mg PO daily for depression. Continue ROM exercises with patient. Keep him aware of pending discharge.
--- NOTE | 2017-03-11 09:27 | Progress Note ---
Assessment and Plan Assessment and plan: Acute ischemic stroke with left-sided hemiparesis. He was not a candidate for tPA. Continue Aspirin , Plavix and Lipitor. He is stable and is awaiting discharge to subacute rehabilitation facility . Acute kidney injury. Now resolved. Malignant hypertension. Blood pressure is now improved. On Procadia XL, Coreg, Hydralazine. Anxiety and depression. Psychiatry following. He has been started on lexapro Medical noncompliance. He has not been taking his antihypertensives. He has been counseled on importance of taking his medications . DVT prophylaxis, With Lovenox Disposition. He is stable to go to SNF. Awaiting bed. History Interval history: patient with acute ischemic stroke Still left sided weakness, Depressed, Poor appetite Hospitalist Physical - Physical exam Narrative exam: Gen: Not in acute distress HEENT: Atraumatic Neck: supple, no JVD Lungs: Clear to auscultation bilaterally, no crackles, no wheeze Heart S1-S2 regular, no murmurs rubs or gallop, Abdomen: soft, non tender,non-distended, normal bowel sounds Ext: No edema, cyanosis or clubbing Neuro: Awake, alert,oriented, left hemiparesis, Psych: depressed - Constitutional Vitals: Temp Pulse Resp BP Pulse Ox 98 F 80 19 155/85 96 03/11/17 05:00 03/11/17 06:19 03/11/17 05:00 03/11/17 06:19 03/11/17 05:00 General appearance: Present: no acute distress, well-nourished Results - Labs CBC & Chem 7: 03/05/17 04:26 03/07/17 04:35 Labs: Laboratory Last Values WBC 11.0 K/mm3 (4.5-11.0) 03/05/17 04:26 RBC 5.70 M/mm3 (3.65-5.03) H 03/05/17 04:26 Hgb 15.9 gm/dl (11.8-15.2) H 03/05/17 04:26 Hct 49.4 % (35.5-45.6) H 03/05/17 04:26 MCV 87 fl (84-94) 03/05/17 04:26 MCH 28 pg (28-32) 03/05/17 04:26 MCHC 32 % (32-34) 03/05/17 04:26 RDW 14.2 % (13.2-15.2) 03/05/17 04:26 Plt Count 253 K/mm3 (140-440) 03/05/17 04:26 Lymph % (Auto) 18.6 % (13.4-35.0) 03/05/17 04:26 [place] % (Auto) 9.4 % (0.0-7.3) H 03/05/17 04:26 Eos % (Auto) 1.1 % (0.0-4.3) 03/05/17 04:26 Baso % (Auto) 0.5 % (0.0-1.8) 03/05/17 04:26 Lymph # 2.0 K/mm3 (1.2-5.4) 03/05/17 04:26 [place] # 1.0 K/mm3 (0.0-0.8) H 03/05/17 04:26 Eos # 0.1 K/mm3 (0.0-0.4) 03/05/17 04:26 Baso # 0.1 K/mm3 (0.0-0.1) 03/05/17 04:26 Seg Neutrophils % 70.4 % (40.0-70.0) H 03/05/17 04:26 Seg Neutrophils # 7.7 K/mm3 (1.8-7.7) 03/05/17 04:26 ESR 1 mm/Hr (0-20) 02/28/17 05:25 PT 12.5 Sec. (12.2-14.9) 02/28/17 05:25 INR 0.94 (0.87-1.13) 02/28/17 05:25 APTT 33.4 Sec. (24.2-36.6) 02/28/17 05:25 Thrombin Time 17.9 Sec. (15.1-19.6) 02/28/17 05:25 Sodium 141 mmol/L (137-145) 03/07/17 04:35 Potassium 4.2 mmol/L (3.6-5.0) 03/07/17 04:35 Chloride 105.2 mmol/L (98-107) 03/07/17 04:35 Carbon Dioxide 22 mmol/L (22-30) 03/07/17 04:35 Anion Gap 18 mmol/L 03/07/17 04:35 BUN 16 mg/dL (9-20) 03/07/17 04:35 Creatinine 0.9 mg/dL (0.8-1.5) 03/07/17 04:35 Estimated GFR > 60 ml/min 03/07/17 04:35 BUN/Creatinine Ratio 17.77 % 03/07/17 04:35 Glucose 96 mg/dL (75-100) 03/07/17 04:35 Hemoglobin A1c 5.9 % (4-6) 02/28/17 05:25 Calcium 8.9 mg/dL (8.4-10.2) 03/07/17 04:35 Total Bilirubin 0.4 mg/dL (0.1-1.2) 02/28/17 05:25 AST 12 units/L (5-40) 02/28/17 05:25 ALT 13 units/L (7-56) 02/28/17 05:25 Alkaline Phosphatase 91 units/L (35-129) 02/28/17 05:25 Total Creatine Kinase 125 units/L (55-170) 02/28/17 05:25 CK-MB (CK-2) 1.6 ng/mL (0.0-4.0) 02/28/17 05:25 CK-MB (CK-2) Rel Index 1.2 (0-4) 02/28/17 05:25 Troponin T < 0.010 ng/mL (0.00-0.029) 02/28/17 05:25 Total Protein 6.9 g/dL (6.3-8.2) 02/28/17 05:25 Albumin 3.6 g/dL (3.9-5) L 02/28/17 05:25 Albumin/Globulin Ratio 1.1 % 02/28/17 05:25 Triglycerides 95 mg/dL (2-149) 02/28/17 11:21 Cholesterol 178 mg/dL (50-199) 02/28/17 11:21 LDL Cholesterol Direct 121 mg/dL (50-130) 02/28/17 11:21 HDL Cholesterol 38 mg/dL (40-59) L 02/28/17 11:21 Cholesterol/HDL Ratio 4.68 % 02/28/17 11:21 Urine Opiates Screen Presumptive negative 02/28/17 11:08 Urine Methadone Screen Presumptive negative 02/28/17 11:08 Ur Barbiturates Screen Presumptive negative 02/28/17 11:08 Ur Phencyclidine Scrn Presumptive negative 02/28/17 11:08 Ur Amphetamines Screen Presumptive negative 02/28/17 11:08 U Benzodiazepines Scrn Presumptive negative 02/28/17 11:08 Urine Cocaine Screen Presumptive negative 02/28/17 11:08 U Marijuana (THC) Screen Presumptive negative 02/28/17 11:08 Drugs of Abuse Note Disclamer 02/28/17 11:08
[2017-03-11] MEDS: COREG PO SCH ×2 (10:42→21:30)
[2017-03-11] MEDS: PROCARDIA XL PO SCH (10:42)
[2017-03-11] MEDS: BABY ASPIRIN PO SCH (10:42)
[2017-03-11] MEDS: PLAVIX PO SCH (10:42)
[2017-03-11] MEDS: LEXAPRO PO SCH (10:43)
[2017-03-11] MEDS: PEPCID PO SCH ×2 (10:43→21:31)
[2017-03-11] MEDS: LOVENOX SUB-Q SCH (10:44)
[2017-03-11] MEDS: HABITROL TD SCH (10:44)
[2017-03-12] MEDS: XANAX PO PRN (03:08)
[2017-03-12] MEDS: APRESOLINE PO SCH ×3 (06:03→22:33)
--- NOTE | 2017-03-12 08:05 | Progress Note ---
Subjective - Reason for Consult Consult date: 03/12/17 Reason for consult: Psychiatry Follow-up - Chief Complaint Chief complaint: "I am not depressed" This is a 36-year-old AA male admitted to [facility] for a neurological abnormality. Psychiatry was consulted to see patient for depression and anxiety. Today patient is calm, cooperative, A/O x4 with a linear thought process. Patient looking forward to being discharged soon. He stated that his was with him last night. Per Hospitalist, patient pending SNF placement. He denies SI/HI's and AVH's. He stated that he slept well last night and his appetite is adequate. Patient was able to move his left leg and squeezed my hand with a mild design technology professor. Expessive aphasia is improving daily. Patient denies any side effects from the Lexapro. Mental Status Exam - Vital signs Last Vital Signs Temp 97.6 F 03/12/17 04:10 Pulse 75 03/12/17 04:10 Resp 20 03/12/17 04:10 BP 114/67 03/12/17 04:10 Pulse Ox 100 03/12/17 04:10 - Exam Narrative exam: MSE: Appearance: good eye contact, cooperative Behavior: psychomotor retardation (left side) Speech: expressive aphasia, rate low and slow Mood: "Not depressed" Affect: euthymic, mood congruent Thought Process: linear, goal directed Thought Content: denies SI/Hi's and AVH's Motor Activity: sitting up in bed, left sided weakness (mild hand design technology professor improving) Cognition: A/O x4, focused Insight: fair Judgment: fair Assessment and Plan Impression: This is a 36-year-old AA male admitted to [facility] for a neurological abnormality. Psychiatry was consulted to see patient for depression and anxiety. Today patient is calm, cooperative, A/O x4 with a linear thought process. Patient looking forward to being discharged soon. He stated that his was with him last night. Per Hospitalist, patient pending SNF placement. He denies SI/HI's and AVH's. Recommendation/Plan: Continue Lexapro 5 mg PO daily for depression. Continue ROM exercises with patient. Pending placement to SNF.
--- NOTE | 2017-03-12 09:30 | Progress Note ---
Assessment and Plan Assessment and plan: Acute ischemic stroke with left-sided hemiparesis. He was not a candidate for tPA. Continue Aspirin, Plavix and Lipitor. He is stable and is awaiting discharge to subacute rehabilitation facility . Acute kidney injury. Now resolved. Malignant hypertension. Blood pressure is now improved. On Procadia XL, Coreg, Hydralazine. Anxiety and depression. Psychiatry following. Continue lexapro Medical noncompliance. He has not been taking his antihypertensives. He has been counseled on importance of taking his medications . DVT prophylaxis, With Lovenox Disposition. He is stable to go to SNF. Awaiting bed. History Interval history: No new issues overnight. Hospitalist Physical - Constitutional Vitals: Temp Pulse Resp BP Pulse Ox 97.6 F 75 20 114/67 100 03/12/17 04:10 03/12/17 04:10 03/12/17 04:10 03/12/17 04:10 03/12/17 04:10 General appearance: Present: no acute distress, well-nourished - EENT Eyes: Present: PERRL, EOM intact ENT: hearing intact, clear oral mucosa, dentition normal - Neck Neck: Present: supple, normal ROM - Respiratory Respiratory effort: normal Respiratory: bilateral: CTA - Cardiovascular Rhythm: regular Heart Sounds: Present: S1 & S2. Absent: gallop, rub - Extremities Extremities: no ischemia, No edema, Full ROM - Abdominal General gastrointestinal: soft, non-tender, non-distended, normal bowel sounds - Integumentary Integumentary: Present: clear, warm, dry - Neurologic Neurologic: CNII-XII intact, moves all extremities Results - Labs CBC & Chem 7: 03/05/17 04:26 03/07/17 04:35 Labs: Laboratory Last Values WBC 11.0 K/mm3 (4.5-11.0) 03/05/17 04:26 RBC 5.70 M/mm3 (3.65-5.03) H 03/05/17 04:26 Hgb 15.9 gm/dl (11.8-15.2) H 03/05/17 04:26 Hct 49.4 % (35.5-45.6) H 03/05/17 04:26 MCV 87 fl (84-94) 03/05/17 04:26 MCH 28 pg (28-32) 03/05/17 04:26 MCHC 32 % (32-34) 03/05/17 04:26 RDW 14.2 % (13.2-15.2) 03/05/17 04:26 Plt Count 253 K/mm3 (140-440) 03/05/17 04:26 Lymph % (Auto) 18.6 % (13.4-35.0) 03/05/17 04:26 [place] % (Auto) 9.4 % (0.0-7.3) H 03/05/17 04:26 Eos % (Auto) 1.1 % (0.0-4.3) 03/05/17 04:26 Baso % (Auto) 0.5 % (0.0-1.8) 03/05/17 04:26 Lymph # 2.0 K/mm3 (1.2-5.4) 03/05/17 04:26 [place] # 1.0 K/mm3 (0.0-0.8) H 03/05/17 04:26 Eos # 0.1 K/mm3 (0.0-0.4) 03/05/17 04:26 Baso # 0.1 K/mm3 (0.0-0.1) 03/05/17 04:26 Seg Neutrophils % 70.4 % (40.0-70.0) H 03/05/17 04:26 Seg Neutrophils # 7.7 K/mm3 (1.8-7.7) 03/05/17 04:26 ESR 1 mm/Hr (0-20) 02/28/17 05:25 PT 12.5 Sec. (12.2-14.9) 02/28/17 05:25 INR 0.94 (0.87-1.13) 02/28/17 05:25 APTT 33.4 Sec. (24.2-36.6) 02/28/17 05:25 Thrombin Time 17.9 Sec. (15.1-19.6) 02/28/17 05:25 Sodium 141 mmol/L (137-145) 03/07/17 04:35 Potassium 4.2 mmol/L (3.6-5.0) 03/07/17 04:35 Chloride 105.2 mmol/L (98-107) 03/07/17 04:35 Carbon Dioxide 22 mmol/L (22-30) 03/07/17 04:35 Anion Gap 18 mmol/L 03/07/17 04:35 BUN 16 mg/dL (9-20) 03/07/17 04:35 Creatinine 0.9 mg/dL (0.8-1.5) 03/07/17 04:35 Estimated GFR > 60 ml/min 03/07/17 04:35 BUN/Creatinine Ratio 17.77 % 03/07/17 04:35 Glucose 96 mg/dL (75-100) 03/07/17 04:35 Hemoglobin A1c 5.9 % (4-6) 02/28/17 05:25 Calcium 8.9 mg/dL (8.4-10.2) 03/07/17 04:35 Total Bilirubin 0.4 mg/dL (0.1-1.2) 02/28/17 05:25 AST 12 units/L (5-40) 02/28/17 05:25 ALT 13 units/L (7-56) 02/28/17 05:25 Alkaline Phosphatase 91 units/L (35-129) 02/28/17 05:25 Total Creatine Kinase 125 units/L (55-170) 02/28/17 05:25 CK-MB (CK-2) 1.6 ng/mL (0.0-4.0) 02/28/17 05:25 CK-MB (CK-2) Rel Index 1.2 (0-4) 02/28/17 05:25 Troponin T < 0.010 ng/mL (0.00-0.029) 02/28/17 05:25 Total Protein 6.9 g/dL (6.3-8.2) 02/28/17 05:25 Albumin 3.6 g/dL (3.9-5) L 02/28/17 05:25 Albumin/Globulin Ratio 1.1 % 02/28/17 05:25 Triglycerides 95 mg/dL (2-149) 02/28/17 11:21 Cholesterol 178 mg/dL (50-199) 02/28/17 11:21 LDL Cholesterol Direct 121 mg/dL (50-130) 02/28/17 11:21 HDL Cholesterol 38 mg/dL (40-59) L 02/28/17 11:21 Cholesterol/HDL Ratio 4.68 % 02/28/17 11:21 Urine Opiates Screen Presumptive negative 02/28/17 11:08 Urine Methadone Screen Presumptive negative 02/28/17 11:08 Ur Barbiturates Screen Presumptive negative 02/28/17 11:08 Ur Phencyclidine Scrn Presumptive negative 02/28/17 11:08 Ur Amphetamines Screen Presumptive negative 02/28/17 11:08 U Benzodiazepines Scrn Presumptive negative 02/28/17 11:08 Urine Cocaine Screen Presumptive negative 02/28/17 11:08 U Marijuana (THC) Screen Presumptive negative 02/28/17 11:08 Drugs of Abuse Note Disclamer 02/28/17 11:08
[2017-03-12] MEDS: COREG PO SCH ×2 (10:38→22:32)
[2017-03-12] MEDS: PEPCID PO SCH ×2 (10:39→22:32)
[2017-03-12] MEDS: LEXAPRO PO SCH (10:39)
[2017-03-12] MEDS: PLAVIX PO SCH (10:39)
[2017-03-12] MEDS: PROCARDIA XL PO SCH (10:39)
[2017-03-12] MEDS: LOVENOX SUB-Q SCH (10:40)
[2017-03-12] MEDS: BABY ASPIRIN PO SCH (10:40)
[2017-03-12] MEDS: HABITROL TD SCH (10:40)
[2017-03-12] MEDS ORDERED: PROCARDIA XL PO SCH (15:00)
[2017-03-13] MEDS: APRESOLINE PO SCH ×2 (06:35→14:10)
--- NOTE | 2017-03-13 08:20 | Discharge Summary ---
Providers - Providers Date of Admission: 02/28/17 06:52 Date of discharge: 03/13/17 Attending physician: HALEY HARDY 02/28/17 11:04 Consult to Physician [CONS] Routine Consulting Provider: YARIEL NUR Reason For Exam: CVA/recurrent CVA with Lt weakness Place consult to:: zak Notified:: yes Was contact made?: Yes If yes, spoke with:: maximus Time called:: 14:45 02/28/17 11:06 Occupational Therapy Evaluate and Treat [CONS] Routine Comment: Reason For Exam: Stroke protocol Physical Therapy Evaluation and Treat [CONS] Routine Comment: CVA Reason For Exam: CVA/stroke protocol 03/01/17 07:44 Consult Acute Rehabilitation [CONS] Routine Consulting Provider: CONNER DAVIDSON Reason For Exam: iru eval/cva 03/02/17 17:12 Consult to Physician [CONS] Routine Consulting Provider: ELI VICTOR Reason For Exam: recurrent CVA/rule out hypercoagulable state Place consult to:: Dr. Victor Notified:: Marci SANCHEZ Phone number called:: Was contact made?: Yes If yes, spoke with:: [facility] Time called:: 08:20 03/03/17 10:45 psychiatry consult [Consult to Mental Health] [CONS] Routine Reason For Exam: depression Place consult to:: Mental Health Notified:: Marci SANCHEZ Phone number called:: Ext [phone] Was contact made?: Yes If yes, spoke with:: [facility] Time called:: 15:51 Primary care physician: TECHNICAL FELLOW Hospitalization Reason for admission: CVA Condition: Fair Hospital course: 36 YO M Hx TIA in 2011, acute CVA with residual left-sided weakness in 2013, HTN poorly compliant, and tobacco abuse p/w waking up 4/6 w/ worsened baseline left-sided weakness around 3:40 morning. Sx were constant on admission but since then have improved.There were no clear aggravating, relieving or temporal factors. Severity was enough to cause inability to effectively use the left side and expressive aphasia. Patient was seen by neurology in consultation and underwent extensive workup. Patient initially underwent transthoracic echocardiogram but then later a JUAN JOSE to rule out intracardiac thrombus. JUAN JOSE revealed no evidence of intracardiac thrombus. Mild left ventricular hypertrophy with mild global left ventricular hypokinesis with an estimated ejection fraction of 40%. No significant valvulopathy identified on the study. No evidence of vegetation. Normal bowel study without evidence of intracardiac or intrapulmonary shunting. MRI revealed small large areas of acute subacute ischemia in the right anterior cerebral artery territory. No evidence of hemorrhage. Chronic focal infarcts. CT of the hand revealed basilar artery demonstrating focal narrowing of the medial portion with less than 50% narrowing suggesting focal intracranial atherosclerosis. Carotid Doppler revealed less than 50% diameter reduction and internal carotid arteries bilaterally. Other issues during hospital stay included problems with the patient concerning anxiety and depression. Psychiatry was consulted and patient was started on Lexapro. Patient eventually stabilized and recommendations were for a senior care facility. However, due to lack of insurance there was some difficulty arranging this. Case management explained to the family that patient will be responsible for 20% of the patient's stay at a senior care facility. Therefore, patient and family opted for home with home health services. Appropriate orders for DME hospital bed, bedside commode and wheelchair range. Patient is felt to have her see maximal hospital benefit. Patient will be discharged home with home health. Irrigated discharge time 38 minutes. Disposition: DC/TX HOME UNDER HOME HEALTH Time spent for discharge: 38 - Discharge Diagnoses (1) Acute ischemic stroke Status: Acute (2) Depression Status: Acute Qualifiers: Depression Type: D Major depression recurrence: M Active/Remission status : A Major depression episode severity: M Psychotic features: P Trimester: T (3) Hypertension Status: Acute Qualifiers: Hypertension type: H (4) Stroke Status: Acute Qualifiers: CVA mechanism: embolism Precerebral and cerebral artery: unspecified cerebral artery Laterality of affected vessel: L Qualified Code(s): I63.40 - Cerebral infarction due to embolism of unspecified cerebral artery Core Measure Documentation - Palliative Care Palliative Care/ Comfort Measures: Not Applicable - Core Measures Any of the following diagnoses?: stroke - Stroke Discharge Requirements Statin for LDL = or >70 mg/dl on DC: Yes Anticoag for atrial fib/atrial flutter: Not Applicable Antithrombotic for ischemic stroke: Yes Exam - Constitutional Vitals: Temp Pulse Resp BP Pulse Ox 98.4 F 84 20 134/88 96 03/13/17 05:00 03/13/17 06:35 03/13/17 05:00 03/13/17 06:35 03/13/17 05:00 General appearance: Present: no acute distress, well-nourished - EENT Eyes: Present: PERRL ENT: hearing intact, clear oral mucosa - Neck Neck: Present: supple, normal ROM - Respiratory Respiratory effort: normal Respiratory: bilateral: CTA - Cardiovascular Heart Sounds: Present: S1 & S2. Absent: rub, click - Extremities Extremities: pulses symmetrical, No edema Peripheral Pulses: within normal limits - Abdominal General gastrointestinal: Present: soft, non-tender, non-distended, normal bowel sounds Male genitourinary: Present: normal - Integumentary Integumentary: Present: clear, warm, dry - Musculoskeletal Musculoskeletal: gait normal, strength equal bilaterally - Psychiatric Psychiatric: appropriate mood/affect, intact judgment & insight - Neurologic Neurologic: CNII-XII intact, other (left sided weakness) Plan Activity: no restrictions Weight Bearing Status: Weight Bear as Tolerated Diet: low fat, low cholesterol, low salt Special Instructions: physical therapy, occupational therapy, home health RN Durable Medical Equipment Needed Upon Discharge: Wheelchair, Bedside Commode, Hospital Bed Follow up with: PRIMARY CARE,MD [Primary Care Provider] - 3-5 Days Prescriptions: ALPRAZolam [Xanax TAB] 0.25 mg PO Q8H PRN #10 tablet PRN Reason: Anxiety Aspirin [Aspirin BABY CHEW TAB] 81 mg PO QDAY #30 tab.chew AtorvaSTATin [Lipitor] 80 mg PO QHS #60 tablet Carvedilol [Coreg] 25 mg PO BID #60 tablet Clopidogrel [Plavix] 75 mg PO QDAY #30 tablet Escitalopram [Lexapro] 5 mg PO QDAY #30 tablet Famotidine [Pepcid] 20 mg PO BID #60 tablet hydrALAZINE [Apresoline TAB] 25 mg PO Q8HR #90 tablet Nicotine [Habitrol] 14 mg TD QDAY #30 patch NIFEdipine XL [Procardia Xl] 90 mg PO DAILY #30 tablet
[2017-03-13] MEDS ORDERED: PROCARDIA XL PO SCH (10:00)
[2017-03-13] MEDS: BABY ASPIRIN PO SCH (10:15)
[2017-03-13] MEDS: LOVENOX SUB-Q SCH (10:41)
[2017-03-13] MEDS: COREG PO SCH (10:42)
[2017-03-13] MEDS: LEXAPRO PO SCH (10:42)
[2017-03-13] MEDS: PLAVIX PO SCH (10:42)
[2017-03-13] MEDS: HABITROL TD SCH (10:44)
[2017-03-13] MEDS: PEPCID PO SCH (11:07)
--- NOTE | 2017-03-13 13:06 | Progress Note ---
Subjective - Reason for Consult Consult date: 03/13/17 Reason for consult: psychiatric follow-up - Chief Complaint Chief complaint: "I am not depressed" This is a 36-year-old AA male admitted to [facility] for a neurological abnormality. Psychiatry was consulted to see patient for depression and anxiety. Today patient is calm, cooperative, A/O x4 with a linear thought process. Patient looking forward to being discharged soon. He discussed that he is going home and will be assisted by his family. He denies SI/HI's and AVH's. He stated that he slept well last night and his appetite is adequate. Expressive aphasia is improving daily. Patient denies any side effects from the Lexapro. Mental Status Exam - Vital signs Last Vital Signs Temp 98.4 F 03/13/17 09:12 Pulse 79 03/13/17 10:42 Resp 20 03/13/17 09:12 BP 140/85 03/13/17 10:42 Pulse Ox 96 03/13/17 09:12 - Exam Orientation: time, place, person Affect: normal Mood: appropriate Thought content: other (no SI or HI) Thought Process: Intact Perceptions: none Speech: normal rate and pattern Concentration: focused Motor activity: normal Level of consciousness: alert Memory: Intact Sleep Symptoms: None Interaction: cooperative Assessment and Plan Impression: MDD DO NOS. This is a 36-year-old AA male admitted to [facility] for a neurological abnormality. Psychiatry was consulted to see patient for depression and anxiety. Expressive aphasia has improved. His thought process is linear. No gestures of SI/HI's or AVH's. Acute to subacute ischemia in the right anterior cerebral artery per MRI. Recommendation/Plan: Recommend Lexapro 5 mg PO daily for depression. Patient declined need for continued psychiatric management once discharged
[2017-03-13 17:19] VITALS: BP 146/87
== END 2017-03-13 19:12 | disposition home health service (06) | DRG 65 ==
LOC: ED 05:01 → 4A 06:52
PROVIDERS: ADMIT Internal Medicine; ATTEND Hospitalist
DX: I63.40 Cerebral infarction due to embolism of unspecified cerebral artery (principal); G81.94 Hemiplegia, unspecified affecting left nondominant side; N17.9 Acute kidney failure, unspecified; D68.59 Other primary thrombophilia; I10 Essential (primary) hypertension; F32.9 Major depressive disorder, single episode, unspecified; F17.210 Nicotine dependence, cigarettes, uncomplicated; F10.10 Alcohol abuse, uncomplicated; I63.8 Other cerebral infarction; F41.9 Anxiety disorder, unspecified; Z86.73 Personal history of transient ischemic attack (TIA), and cerebral infarction without residual deficits; Z82.49 Family history of ischemic heart disease and other diseases of the circulatory system; Z91.19 Patient's noncompliance with other medical treatment and regimen; Z71.6 Tobacco abuse counseling
CPT/HCPCS: 36415; 70450; 70496; 70498; 70551; 80048; 80053; 80061; 80307; 82550; 82553; 83036; 83516; 84484; 85025; 85301; 85305; 85307; 85610; 85613; 85652; 85670; 85730; 86147; 93005; 93010; 93306; 93312; 93320; 93325; 93880; 96372; 96374; A9270-GY; J0360; J1650; J2250; J2704; J7030; J7040; Q9967